=== PATIENT | male | born 1940 | race Caucasian/White ===

== ENCOUNTER 2022-01-06 12:40 | Outpatient (RCR) | payer MEDICARE, SELFPAY ==
[2022-01-06 13:07] VITALS: BP 131/69; PULSE 60
== END 2022-02-11 08:44 | disposition home or self-care (01) ==
LOC: HO.PT 12:40
PROVIDERS: PCP Family Medicine; Visit Provider Family Medicine
DX: M54.32 Sciatica, left side (principal)
CPT/HCPCS: 97112; 97140; 97161

== ENCOUNTER 2022-08-27 08:22 | Emergency (ER) | payer MEDICARE, SELFPAY ==
--- NOTE | ~2022-08-27 | CT_ITS ---
EXAMINATION: CT HEAD WITHOUT CONTRAST CLINICAL INFORMATION: Unsteadiness. COMPARISON: No relevant prior imaging. TECHNIQUE: Contiguous axial imaging was performed from the skull base to vertex without intravenous administration of contrast. This CT examination was performed using dose optimization techniques as appropriate, variously including the following: *Automated exposure control *Adjustment of mA and/or kV according to patient size (this includes techniques or standardized protocols for targeted exams where dose is matched to indication/reason for exam; i.e. extremities or head) *Use of iterative reconstruction technique DLP: 1042 mGy-cm FINDINGS: There is no acute intracranial hemorrhage or abnormal extra-axial collection. No intracranial mass effect midline shift. Lateral and third ventricles are proportionate to the subarachnoid spaces. No hydrocephalus. There are scattered nonspecific foci of hypoattenuation within the periventricular white matter most likely represent a chronic manifestation of small vessel ischemia. Meneses-white matter differentiation is otherwise preserved and there is no evidence of acute territorial infarct. The calvarium and skull base are intact mastoid air cells and middle ear cavities are well aerated. Mild paranasal sinus disease primarily affecting the maxillary sinuses. Globes and orbits are grossly symmetric. CT/CT head/brain wo IV con IMPRESSION: There are scattered chronic small vessel ischemic changes within the periventricular white matter. Otherwise unremarkable examination. No evidence of acute territorial infarct or hemorrhage.
--- NOTE | ~2022-08-27 | XR_ITS ---
EXAMINATION: XR CHEST CLINICAL INFORMATION: Shortness of breath. COMPARISON: None available. TECHNIQUE: Frontal view of the chest was obtained. FINDINGS: Support devices: Left-sided pacemaker device appears in good position without abnormality. No significant abnormality is noted involving the heart, lungs, mediastinum, bony thorax or soft tissues. XR/XR chest 1V IMPRESSION: No acute cardiopulmonary process.
--- NOTE | ~2022-08-27 | CT_ITS ---
EXAMINATION: CT CHEST WITH CONTRAST CLINICAL INFORMATION: Lightheaded, palpitations, shortness of breath. COMPARISON: Chest radiograph dated 08/27/2022. TECHNIQUE: Multidetector volumetric CT imaging of the chest was obtained after the administration of 50 mL of Omnipaque 350 intravenous contrast without immediate adverse reactions. Axial MIP volume rendering provided. Sagittal and coronal reformatted images were obtained. This CT examination was performed using dose optimization techniques as appropriate, variously including the following: *Automated exposure control *Adjustment of mA and/or kV according to patient size (this includes techniques or standardized protocols for targeted exams where dose is matched to indication/reason for exam; i.e. extremities or head) *Use of iterative reconstruction technique DLP: 1042 mGy-cm FINDINGS: LUNGS/PLEURA/AIRWAYS: Mild elevation of the right hemidiaphragm. Mild right lower lobe atelectasis or scarring and bronchiectasis is seen. Mild linear atelectasis or scarring is seen in the right middle lobe, lingula and left lower lobe. No suspicious pulmonary nodules are seen. No focal consolidation or pleural effusions. The airways are patent. MEDIASTINUM: The thyroid gland is unremarkable. Minimal calcifications are seen in the thoracic aorta without significant dilatation. Mild to moderate coronary artery calcifications. No pericardial effusion. No mediastinal or hilar lymphadenopathy. UPPER ABDOMEN: Diffuse decreased hepatic attenuation without focal abnormality. Moderate diverticulosis in the visualized transverse colon without surrounding abnormality. Partial visualization of small exophytic left posterior renal fluid attenuation cysts without other abnormality, not requiring follow-up. MUSCULOSKELETAL: Mild to moderate multilevel degenerative changes without suspicious abnormality. SOFT TISSUES: No soft tissue abnormality. No axillary lymphadenopathy. CT/CT chest w IV con IMPRESSION: 1. Mild elevation of the right hemidiaphragm and mild chronic pulmonary changes as detailed above. No acute or suspicious abnormality. 2. Hepatic steatosis.
[2022-08-27 08:32] VITALS: BP 138/53; PULSE 66; RESP 16; TEMP 36.4; O2SAT 94; BMI 28.3
--- NOTE | 2022-08-27 08:59 | ECG_ITS ---
Test Reason : weakness Blood Pressure : / mmHG Vent. Rate : 060 BPM Atrial Rate : 060 BPM P-R Int : 190 ms QRS Dur : 100 ms QT Int : 420 ms P-R-T Axes : -27 016 080 degrees QTc Int : 420 ms Atrial-paced rhythm Abnormal ECG No previous ECGs available Referred By: Alessandra Leigh Electronically Signed By:BRAXTON GARZA MD
--- NOTE | 2022-08-27 09:18 | ED.WEAKNESS ---
HPI - Weakness General Chief complaint: Weakness Stated complaint: unsteady, cold feet and hands, discomfort in chest Time Seen by Provider: 08/27/22 08:36 Source: patient Mode of arrival: ambulatory History of Present Illness HPI Narrative: This is an 82-year-old male who presents with reporting that he has had increasing shortness of breath over the past week and also reports that he has had uncharacteristic episodes my atrial fibrillation reoccurring?. Patient states that what prompted him to come into the emergency room today is that last night is he was going to bed he felt somewhat dizzy and lightheaded but went to bed any way and then woke up at approximately 03:00 in the morning stating that he felt as though all of his extremities were cold. Patient then attempted to rewarming himself, got up to the bathroom felt very unsteady and lightheaded as well as short of breath, return to bed and then states that he had rigors for probably an hour . He states that he felt very concerned and this has prompted him to come in be evaluated in the ER. Patient states he has also had increased lower extremity swelling as well as dyspnea on exertion. Related Data Previous Rx's Medication Instructions Recorded doxycycline hyclate 100 mg tablet 100 mg PO BID 5 days #10 tabs 08/27/22 furosemide 20 mg tablet (Lasix) 10 mg PO DAILY #14 tabs 08/27/22 Allergies Allergy/AdvReac Type Severity Reaction Status Date / Time Penicillins Allergy Hives Verified 08/27/22 08:32 Review of Systems Review of Systems: Pertinent positives and negatives as stated in HPI PMFSH Past Medical History Source: nursing notes reviewed Social History Social History Alcohol intake: unknown Smoked in Last 30 Days: No Use of substances other than those prescribed or required for medical reasons: No Any prior treatment program specific to substance use: No Advance Directives: Yes Advance Directives Information Provided: Yes Advance Directives on File: No Physical Exam Vital Signs: Vital Signs: Last Vital Signs Temp 97.6 F 08/27/22 08:32 Pulse 60 08/27/22 11:38 Resp 20 08/27/22 11:38 BP 128/68 08/27/22 11:38 Pulse Ox 93 08/27/22 11:38 O2 Del Method Room Air 08/27/22 11:38 BMI result Body Mass Index 28.3 VITAL SIGNS: Reviewed. GENERAL: Well developed, well nourished, in no acute distress. HEAD: Normocephalic/atraumatic EYES: PERRLA, EOMI EARS: Ext canals without abnormality NOSE: Nares patent bilateral OROPHARYNX: no oral lesions noted, posterior pharynx clear NECK: Supple, no adenopathy LUNGS: Normal breath sounds. No adventitious sounds or accessory muscle use. SpO2<94> CARDIOVASCULAR: Regular rate and rhythm without noted murmurs, no JVD but 2+ lower extremity edema. ABDOMEN: Soft, non-tender, non-distended with bowel sounds. MUSCULOSKELETAL: No tenderness, deformities, or effusions noted on gross inspection. EXTREMITIES: No cyanosis, clubbing or edema. SKIN: Inspection of the skin reveals no rashes NEUROLOGIC: Alert and oriented x 4. 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 Medications Administered Discontinued Medications Generic Name Dose Route Start Last Admin Trade Name Freq PRN Reason Stop Dose Admin Furosemide 40 mg 08/27/22 09:49 08/27/22 10:22 Furosemide 40 Mg/4 Ml Vial IVPUSH 08/27/22 09:50 40 mg ONCE ONE Administration Protocol Ceftriaxone Sodium 1 gm/ 50 mls @ 100 mls/hr 08/27/22 11:05 08/27/22 11:53 Sodium Chloride IV 08/27/22 11:34 Infused ONCE ONE Infusion Sodium Chloride 500 mls @ 999 mls/hr 08/27/22 12:00 08/27/22 12:42 Ns IV 08/27/22 12:30 Infused .Q31M GEOVANI Infusion Iohexol 65 ml 08/27/22 10:18 08/27/22 10:19 Iohexol 350 Mg/Ml 100 Ml Infus..Btl IV 08/27/22 10:19 65 ml ONCE ONE Administration Medical Decision Making Medical Decision Making [facility] Narrative: 923: 82-year-old male with new onset rigors and weakness, suspect patient may have developed CHF exacerbation after paroxysmal atrial fibrillation. However, I have concerns regarding the lack of anticoagulation and patient having gone in to these subjective episodes of atrial fibrillation. Current EKG demonstrates paced rhythm but P waves are present. I reviewed all investigations in my interpretation is that patient has a developing pneumonia with overlying CHF. He has responded well to the Lasix and will discharge him on a 10 mg daily dose with strict instructions to follow-up with his primary care provider. He will also be discharged on a course of antibiotics. Patient was ambulated and noted to maintain good oxygenation of 95-98% on room air in reports that he is feeling much better. Differential Diagnosis Please see the discussion above Lab Data Please see the discussion above 08/27/22 09:15 08/27/22 09:15 Labs: Lab Results 08/27/22 08/27/22 08/27/22 Range/Units 09:15 09:15 09:15 WBC 11.2 H (4.8-10.8) X10*3/uL RBC 3.99 L (4.60-5.80) X10*6/uL Hgb 13.0 L (14.0-18.0) g/dl Hct 38.4 L (42.0-52.0) % MCV 96.2 (80.0-98.0) fL MCH 32.6 (27.0-33.0) pg MCHC 33.9 (31.0-36.0) g/dl RDW 13.2 (11.0-16.0) % Plt Count 172 (160-400) X10*3/uL MPV 10.4 (9.4-12.4) fL Immature Gran % (Auto) 0.6 H (0.0-0.4) % Neut % (Auto) 90.7 H (45-73) % Lymph % (Auto) 2.9 L (20-40) % [place] % (Auto) 5.4 (2-11) % Eos % (Auto) 0.1 (0-4) % Baso % (Auto) 0.3 (0-2) % Lymph # (Auto) 0.3 L (1.2-4.9) X10*3/uL [place] # (Auto) 0.6 (0.1-1.2) X10*3/uL Eos # (Auto) 0.0 (0.0-0.4) X10*3/uL Baso # (Auto) 0.0 (0.0-0.2) X10*3/uL Abs Immat Gran (auto) 0.07 H (0.00-0.03) X10*3/uL Absolute Neuts (auto) 10.2 H (2.0-8.3) x10*3/uL Absolute Nucleated RBC 0.000 (0.0-0.012) X10*3/uL Nucleated RBC % (auto) 0.0 (0.0-0.2) /100WBC Smear Tech's Comments VERIFIED PT (10.0-13.1) SEC INR (0.9-1.1) Sodium 142 (135-145) mmol/L Potassium 4.1 (3.3-5.1) mmol/L Chloride 110 H (96-108) mmol/L Carbon Dioxide 22 (22-29) mmol/L Anion Gap 14 (12-20) BUN 23 H (9-16) mg/dL Creatinine 1.11 (0.5-1.4) mg/dL Estim Creat Clear Calc 62.0 Estimated GFR > 60 Random Glucose 145 H (60-115) mg/dL Lactic Acid (0.5-2.0) mmol/L Calcium 8.6 (8.4-10.2) mg/dL Total Bilirubin 1.6 H (0.0-1.0) mg/dL AST 16 (5-37) U/L ALT 13 (0-40) U/L Alkaline Phosphatase 60 (39-117) U/L Troponin I High Sens (<3.5-35.0) ng/L B-Natriuretic Peptide 364 H (<100) pg/mL Total Protein 5.8 L (6.5-8.0) g/dL Albumin 3.8 (3.5-5.0) g/dL Urine Color Urine Appearance Urine pH (5.0-9.0) Ur Specific [place] (1.005-1.025) Urine Protein (Neg-Trace) mg/dL Urine Glucose (UA) (Negative) mg/dL Urine Ketones (Negative) mg/dL Urine Blood (Negative) Urine Nitrite (Negative) Ur Leukocyte Esterase (Negative) Urine RBC (0-2) /HPF Urine WBC (0-5) /HPF Ur Squamous Epith Cells (0-2) /HPF Urine Bacteria (None Seen) Hyaline Casts (0-2) /LPF 08/27/22 08/27/2223 Range/Units 09:15 09:15 10:14 WBC (4.8-10.8) X10*3/uL RBC (4.60-5.80) X10*6/uL Hgb (14.0-18.0) g/dl Hct (42.0-52.0) % MCV (80.0-98.0) fL MCH (27.0-33.0) pg MCHC (31.0-36.0) g/dl RDW (11.0-16.0) % Plt Count (160-400) X10*3/uL MPV (9.4-12.4) fL Immature Gran % (Auto) (0.0-0.4) % Neut % (Auto) (45-73) % Lymph % (Auto) (20-40) % [place] % (Auto) (2-11) % Eos % (Auto) (0-4) % Baso % (Auto) (0-2) % Lymph # (Auto) (1.2-4.9) X10*3/uL [place] # (Auto) (0.1-1.2) X10*3/uL Eos # (Auto) (0.0-0.4) X10*3/uL Baso # (Auto) (0.0-0.2) X10*3/uL Abs Immat Gran (auto) (0.00-0.03) X10*3/uL Absolute Neuts (auto) (2.0-8.3) x10*3/uL Absolute Nucleated RBC (0.0-0.012) X10*3/uL Nucleated RBC % (auto) (0.0-0.2) /100WBC Smear Tech's Comments PT 12.8 (10.0-13.1) SEC INR 1.1 (0.9-1.1) Sodium (135-145) mmol/L Potassium (3.3-5.1) mmol/L Chloride (96-108) mmol/L Carbon Dioxide (22-29) mmol/L Anion Gap (12-20) BUN (9-16) mg/dL Creatinine (0.5-1.4) mg/dL Estim Creat Clear Calc Estimated GFR Random Glucose (60-115) mg/dL Lactic Acid (0.5-2.0) mmol/L Calcium (8.4-10.2) mg/dL Total Bilirubin (0.0-1.0) mg/dL AST (5-37) U/L ALT (0-40) U/L Alkaline Phosphatase (39-117) U/L Troponin I High Sens 22.6 (<3.5-35.0) ng/L B-Natriuretic Peptide (<100) pg/mL Total Protein (6.5-8.0) g/dL Albumin (3.5-5.0) g/dL Urine Color Dark Yellow Urine Appearance Clear Urine pH 5.5 (5.0-9.0) Ur Specific [place] 1.025 (1.005-1.025) Urine Protein 30 (1+) H (Neg-Trace) mg/dL Urine Glucose (UA) Negative (Negative) mg/dL Urine Ketones Trace (Negative) mg/dL Urine Blood Negative (Negative) Urine Nitrite Negative (Negative) Ur Leukocyte Esterase Negative (Negative) Urine RBC 0-2 (0-2) /HPF Urine WBC 0-5 (0-5) /HPF Ur Squamous Epith Cells 0-2 (0-2) /HPF Urine Bacteria None Seen (None Seen) Hyaline Casts 0-2 (0-2) /LPF 08/27/22 Range/Units 11:09 WBC (4.8-10.8) X10*3/uL RBC (4.60-5.80) X10*6/uL Hgb (14.0-18.0) g/dl Hct (42.0-52.0) % MCV (80.0-98.0) fL MCH (27.0-33.0) pg MCHC (31.0-36.0) g/dl RDW (11.0-16.0) % Plt Count (160-400) X10*3/uL MPV (9.4-12.4) fL Immature Gran % (Auto) (0.0-0.4) % Neut % (Auto) (45-73) % Lymph % (Auto) (20-40) % [place] % (Auto) (2-11) % Eos % (Auto) (0-4) % Baso % (Auto) (0-2) % Lymph # (Auto) (1.2-4.9) X10*3/uL [place] # (Auto) (0.1-1.2) X10*3/uL Eos # (Auto) (0.0-0.4) X10*3/uL Baso # (Auto) (0.0-0.2) X10*3/uL Abs Immat Gran (auto) (0.00-0.03) X10*3/uL Absolute Neuts (auto) (2.0-8.3) x10*3/uL Absolute Nucleated RBC (0.0-0.012) X10*3/uL Nucleated RBC % (auto) (0.0-0.2) /100WBC Smear Tech's Comments PT (10.0-13.1) SEC INR (0.9-1.1) Sodium (135-145) mmol/L Potassium (3.3-5.1) mmol/L Chloride (96-108) mmol/L Carbon Dioxide (22-29) mmol/L Anion Gap (12-20) BUN (9-16) mg/dL Creatinine (0.5-1.4) mg/dL Estim Creat Clear Calc Estimated GFR Random Glucose (60-115) mg/dL Lactic Acid 1.9 (0.5-2.0) mmol/L Calcium (8.4-10.2) mg/dL Total Bilirubin (0.0-1.0) mg/dL AST (5-37) U/L ALT (0-40) U/L Alkaline Phosphatase (39-117) U/L Troponin I High Sens (<3.5-35.0) ng/L B-Natriuretic Peptide (<100) pg/mL Total Protein (6.5-8.0) g/dL Albumin (3.5-5.0) g/dL Urine Color Urine Appearance Urine pH (5.0-9.0) Ur Specific [place] (1.005-1.025) Urine Protein (Neg-Trace) mg/dL Urine Glucose (UA) (Negative) mg/dL Urine Ketones (Negative) mg/dL Urine Blood (Negative) Urine Nitrite (Negative) Ur Leukocyte Esterase (Negative) Urine RBC (0-2) /HPF Urine WBC (0-5) /HPF Ur Squamous Epith Cells (0-2) /HPF Urine Bacteria (None Seen) Hyaline Casts (0-2) /LPF Independent Interpretation I performed an independent interpretation of an: EKG Interpretation: 09: Atrial paced rhythm, HR-60, no STEMI, paced [place]/QRS/QTC are within normal limits. Radiology Impression Radiologist Impression: My interpretation is not entirely in agreement with radiology's impression of the imaging studies. Reviewing the imaging studies in the context of patient's history and clinical presentation as well as objective laboratory data I feel that this patient has a component of both CHF as well as developing pneumonia. Chronic Conditions Patient?s care impacted by: Hypertension Discharge Plan Discharge Clinical Impression: CHF (congestive heart failure), Pneumonia Patient Disposition: Home, Self-Care Instructions: Heart Failure (ED), Community Acquired Pneumonia (ED), Low-Sodium Diet (ED) Additional Instructions: 1. Resume all home medications as prescribed. 2. Complete the entire course of antibiotics as ordered. 3. I have started you on a low dose of Lasix, this is a medication that will make you urinate more frequently. Please be sure to mention this to your primary care provider/burlap roll coverer. 4. Please follow-up with your burlap roll coverer on Tuesday morning as well as your primary care provider. Return to the ER for any worsening symptoms. Prescriptions: New furosemide [Lasix] 20 mg tablet 10 mg PO DAILY Qty: 14 0RF doxycycline hyclate 100 mg tablet 100 mg PO BID 5 Days Qty: 10 0RF Referrals: Philippe Ly MD [Primary Care Provider] -
--- NOTE | 2022-08-27 09:19 | PC.NURSE ---
ED radiology at bedside patient AOx 4 neuros intact no facial droop no deviation of tongue no slurring of words or trouble word finding. Grasp equal 5/5 no drift noted patient ambulates with steady independent gait. Patient denies SOB or rspiratory distress LS clear reports episode of palpations and chest pressure has history of a fib and has pacer. Patient reports was during activity. Pacer is demand pacer HR 60. IV access obtained labs collected and sent will CTM
[2022-08-27 09:23] LABS: Basophils Percent Auto 0.3 % (0-2); Eosinophils Percent Auto 0.1 % (0-4); Hematocrit 38.4 % (42.0-52.0); Imm Gran Abs Auto 0.07 X10*3/uL (0.00-0.03); Imm Gran Pct Auto 0.6 % (0.0-0.4); Lymphocytes Absolute Auto 0.3 X10*3/uL (1.2-4.9); Lymphocytes Percent Auto 2.9 % (20-40); MANUAL DIFF FLAG SCAN; Mean Corpuscular HGB Conc 33.9 g/dl (31.0-36.0); Mean Corpuscular Hemoglobin 32.6 pg (27.0-33.0); Mean Corpuscular Volume 96.2 fL (80.0-98.0); Mean Platelet Volume 10.4 fL (9.4-12.4); Monocytes Absolute Auto 0.6 X10*3/uL (0.1-1.2); Monocytes Percent Auto 5.4 % (2-11); Neutrophils Absolute Auto 10.2 x10*3/uL (2.0-8.3); Neutrophils Percent Auto 90.7 % (45-73); Platelet Count 172 X10*3/uL (160-400); Red Blood Count 3.99 X10*6/uL (4.60-5.80); Red Cell Distribution Width 13.2 % (11.0-16.0); SCAN SMEAR FLAG 1; White Blood Count 11.2 X10*3/uL (4.8-10.8)
[2022-08-27 09:28] LABS: INTERNATIONAL NORM RATIO 1.1 (0.9-1.1); Prothrombin Time 12.8 SEC (10.0-13.1)
[2022-08-27 09:40] LABS: Alanine Aminotransferase 13 U/L (0-40); Albumin Level 3.8 g/dL (3.5-5.0); Alkaline Phosphatase 60 U/L (39-117); Anion Gap 14 (12-20); Aspartate Amino Transferase 16 U/L (5-37); Bilirubin Total 1.6 mg/dL (0.0-1.0); Blood Urea Nitrogen 23 mg/dL (9-16); Calcium 8.6 mg/dL (8.4-10.2); Carbon Dioxide 22 mmol/L (22-29); Chloride 110 mmol/L (96-108); Estimated Glomerular Filt Rate > 60; Glucose Random 145 mg/dL (60-115); Potassium 4.1 mmol/L (3.3-5.1); Sodium 142 mmol/L (135-145); Total Protein 5.8 g/dL (6.5-8.0)
[2022-08-27 09:44] LABS: Troponin-I High Sensitivity 22.6 ng/L (<3.5-35.0)
[2022-08-27 09:46] LABS: B Type Natriuretic Peptide 364 pg/mL (<100)
--- NOTE | 2022-08-27 09:56 | PC.NURSE ---
Patient to CT
[2022-08-27 10:12] LABS: SLIDE REVIEW VERIFIED
[2022-08-27 10:14] VITALS: BP 129/50; PULSE 67; RESP 22; O2SAT 92
[2022-08-27] MEDS: iohexoL 350 MG/ML 100 ML INFUS..BTL 65 ML IV (10:19)
--- NOTE | 2022-08-27 10:21 | PC.NURSE ---
pATIENT REFUSED [facility] CATHETER IS CONTINENT OF URINE md AWARE.
[2022-08-27 10:22] LABS: Appearance Urine Clear; Color Urine Dark Yellow; Glucose Urine UA Negative (Negative); Leukocyte Esterase Urine Negative (Negative); Nitrite Urine Negative (Negative); PH 5.5 (5.0-9.0); Specific Gravity - Urine 1.025 (1.005-1.025); UMIC TRIGGER UACC YES; Urine Blood Negative (Negative); Urine Ketones Trace mg/dL (Negative); Urine Protein 30 (1+) mg/dL (Neg-Trace)
[2022-08-27] MEDS: Furosemide 40 MG/4 ML VIAL IVPUSH (10:22)
[2022-08-27 10:26] LABS: Bacteria Urine None Seen (None Seen); Hyaline Casts Urine 0-2 /LPF (0-2); RBC Urine 0-2 /HPF (0-2); Squamous Epithelial Cell Urine 0-2 /HPF (0-2); WBC Urine 0-5 /HPF (0-5)
[2022-08-27 11:27] LABS: Lactic Acid 1.9 mmol/L (0.5-2.0)
[2022-08-27] MEDS: cefTRIAXone sodium 1 GM in 0.9 % Sodium Chloride 50 ML IV (11:36)
[2022-08-27 11:38] VITALS: BP 128/68; PULSE 60; RESP 20; O2SAT 93
[2022-08-27] MEDS: 0.9 % Sodium Chloride 500 ML 999 ML IV (11:58)
--- NOTE | 2022-08-27 13:05 | PC.NURSE ---
Ambulated with patient who reports feeling better O2 sat remained 95-97% MD aware
[2022-08-27 13:42] VITALS: BP 102/60; PULSE 60; RESP 18; TEMP 37.2; O2SAT 95
== END 2022-08-27 13:55 | disposition home or self-care (01) ==
PROVIDERS: Emergency Provider Student in an Organized Health Care Education/Training Program; PCP Family Medicine
DX: J18.9 Pneumonia, unspecified organism (principal); I50.9 Heart failure, unspecified; R51.9 Headache, unspecified; M54.6 Pain in thoracic spine; R06.02 Shortness of breath; R07.89 Other chest pain; Z79.899 Other long term (current) drug therapy
CPT/HCPCS: 36415; 70450; 71045; 71260; 80053; 81001; 83605; 83880; 84484; 85025; 85610; 87040; 87147; 87186; 87205; 93005; 96361; 96365; 96375; 99285; J0696; J1940; Q9967

== ENCOUNTER 2022-09-01 13:34 | Inpatient (IN) | payer MEDICARE, SELFPAY ==
--- NOTE | ~2022-09-01 | XR_ITS ---
EXAMINATION: XR CHEST CLINICAL INFORMATION: Baseline chest x-ray COMPARISON: Chest x-ray 08/27/2022. CT of chest 08/27/2022 TECHNIQUE: Frontal view of the chest was obtained. Portable 1815 hours FINDINGS: Asymmetric elevation of right diaphragm above the left. Pacemaker lead in right atrium and right ventricle unchanged position since prior chest x-ray. No acute abnormality. No pulmonary vascular congestion. No focal airspace opacity. No pleural effusion or pneumothorax. Multilevel degenerative spondylosis of the dorsal spine. XR/XR chest 1V IMPRESSION: No acute abnormality of chest.
--- NOTE | 2022-09-01 13:42 | ED_ITS ---
HPI - General Adult General Chief complaint: Recheck/Abnormal Lab/Rx <BHAVNA Menard - Last Filed: 09/01/22 13:45> Stated complaint: Abnormal labs <BHAVNA Menard - Last Filed: 09/01/22 13:45> Time Seen by Provider: 09/01/22 16:19 <BHAVNA Menard - Last Filed: 09/01/22 13:45> Source: patient and RN notes reviewed <Valentino Coreas - Last Filed: 11/06/22 16:04> Mode of arrival: ambulatory <Valentino Coreas - Last Filed: 11/06/22 16:04> Limitations: no limitations <Valentino Coreas - Last Filed: 11/06/22 16:04> History of Present Illness HPI narrative: 82-year-old male with past medical history significant for atrial fibrillation, sick sinus syndrome status post pacemaker implantation presents for evaluation of positive blood cultures. Patient is not anticoagulated for his AFib. Reports for the last 2 weeks his AFib that had been under control for years ?has been constantly going faster and out of control. ? He was seen here on 08/27/2022 for shortness of breath and fatigue. He was discharged with diagnosis of community-acquired pneumonia and CHF with doxycycline and Lasix respectively. The patient reports that he has continued to have chills and sweats at night. He reports that he does not feel back to his baseline. Of note, the patient was called and told to return to the ER due to ?positive blood cultures. His blood cultures from 08/27/2022 tested positive for group C strep. The patient does state that he has had a previous heart murmur <Valentino Coreas - Last Filed: 11/06/22 16:04> Related Data Home medications: Home Medications Medication Instructions Recorded Confirmed amiodarone 200 mg tablet 200 mg PO DAILY 09/01/22 09/01/22 ascorbic acid (vitamin C) 500 mg 1,000 mg PO DAILY 09/01/22 09/01/22 tablet atorvastatin 10 mg tablet 10 mg PO DAILY 09/01/22 09/01/22 cholecalciferol (vitamin D3) 10 10 mcg PO DAILY 09/01/22 09/01/22 mcg (400 unit) tablet escitalopram oxalate 10 mg tablet 10 mg PO DAILY 09/01/22 09/01/22 multivitamin 1 tab PO DAILY 09/01/22 09/01/22 vitamin E 268 mg (400 unit) capsule 268 mg PO DAILY 09/01/22 09/01/22 Previous Rx's Medication Instructions Recorded furosemide 20 mg tablet (Lasix) 10 mg PO DAILY #14 tabs 08/27/22 cefuroxime axetil 500 mg tablet 500 mg PO BID 10 days #20 tabs 09/03/22 <BHAVNA Menard - Last Filed: 09/01/22 13:45> Allergies/adverse reactions: Allergies Allergy/AdvReac Type Severity Reaction Status Date / Time Penicillins Allergy Hives Verified 09/01/22 14:05 <BHAVNA Menard - Last Filed: 09/01/22 13:45> Review of Systems Constitutional: Constitutional: Reports as per HPI, Reports chills, Reports fatigue, Denies fever(s), Denies headache(s) and Reports weakness <Valentino Coreas - Last Filed: 11/06/22 16:04> ENT: Denies headache(s) <Valentino Coreas - Last Filed: 11/06/22 16:04> Cardiovascular: Cardiovascular: Denies chest pain <Valentino Coreas - Last Filed: 11/06/22 16:04> Respiratory: Respiratory: Denies cough <Valentino Coreas - Last Filed: 11/06/22 16:04> Gastrointestinal: Gastrointestinal: Denies abdominal pain, Denies constipation and Denies vomiting <Valentino Coreas - Last Filed: 11/06/22 16:04> Genitourinary: Genitourinary: Denies difficulty urinating and Denies dysuria <Valentino Coreas - Last Filed: 11/06/22 16:04> Integumentary/Breasts: Skin/Breast: Denies rash <Valentino Coreas - Last Filed: 11/06/22 16:04> Neurologic: Denies headache(s), Denies focal weakness and Reports weakness <Valentino Coreas - Last Filed: 11/06/22 16:04> Endocrine: Endocrine: Reports fatigue <Valentino Coreas - Last Filed: 16:04> PMFSH Past Medical History Medical History: Medical History (Updated 09/04/22 @ 00:02 by Catie Charles) Atrial fibrillation Depression Group C streptococcal infection Hyperlipidemia Sick sinus syndrome <BHAVNA Menard - Last Filed: 09/01/22 13:45> Surgical History: Surgical History No pertinent past surgical history <BHAVNA Menard - Last Filed: 09/01/22 13:45> Family History Family History: Family History Mother Lung cancer Father Emphysema lung <BHAVNA Menard - Last Filed: 09/01/22 13:45> Social History Social History: Social History Household Members: None Housing: House Do you presently have visiting nurse or other home services: No Alcohol intake: current Alcohol intake frequency: 0-2 drinks per day Patient Tobacco Use Status: Former Tobacco user Tobacco use type: Cigarette Second Hand Smoke Exposure: No service: No Current occupational status: retired <BHAVNA Menard - Last Filed: 09/01/22 13:45> Physical Exam ED Vital Signs: Vital Signs - 24 hr 09/01/22 14:06 09/01/22 17:46 Temperature 98 F 97.5 F Pulse Rate 59 72 Respiratory Rate 19 18 Blood Pressure 179/47 H 151/92 H Pulse Oximetry 98 95 Oxygen Delivery Method Room Air Room Air BMI result Body Mass Index 29.0 <BHAVNA Menard - Last Filed: 09/01/22 13:45> Vital Signs - 24 hr 09/01/22 14:06 09/01/22 17:46 Temperature 98 F 97.5 F Pulse Rate 59 72 Respiratory Rate 19 18 Blood Pressure 179/47 H 151/92 H Pulse Oximetry 98 95 Oxygen Delivery Method Room Air Room Air BMI result Body Mass Index 29.0 <Valentino Coreas - Last Filed: 11/06/22 16:04> Const General: healthy appearing, comfortable, no acute distress, alert and awake <Valentino Coreas - Last Filed: 11/06/22 16:04> Nutritional Appearance: well nourished <Valentino OSan Bernardino - Last Filed: 11/06/22 16:04> Orientation/consciousness: patient oriented x3 <Valentino OLuis Antonio - Last Filed: 11/06/22 16:04> HENMT Head: Yes normocephalic and Yes atraumatic <Valentino O - Last Filed: 11/06/22 16:04> Throat: Yes posterior oropharynx normal <Valentino O - Last Filed: 11/06/22 16:04> Eyes Eyelids: Yes eyelids normal <Valentino O - Last Filed: 11/06/22 16:04> Conjunctivae: conjunctivae normal <Valentino O Last Filed: 11/06/22 16:04> Sclerae: sclerae normal <Valentino Last Filed: 11/06/22 16:04> Corneas: corneas normal <Valentino O - Last Filed: 11/06/22 16:04> Pupils: Equal, round and reactive pupils present <Valentino O - Last Filed: 11/06/22 16:04> EOM: EOMs intact bilaterally <Valentino O - Last Filed: 11/06/22 16:04> Neck Neck: Yes full ROM <Valentino O Last Filed: 11/06/22 16:04> Resp Effort & Inspection: normal respiratory effort, able to speak in complete sentences, no audible wheezes and not labored <Valentino OSan Bernardino - Last Filed: 11/06/22 16:04> Auscultation: clear to auscultation bilaterally <Valentino O Last Filed: 11/06/22 16:04> Cardio Rate: regular rate <Valentino O - Last Filed: 11/06/22 16:04> Rhythm: regular rhythm <Valentino O - Last Filed: 11/06/22 16:04> Heart sounds: Murmur heart sound present <Valentino O - Last Filed: 11/06/22 16:04> GI Inspection: No distended <Valentino O - Last Filed: 11/06/22 16:04> Palpation (GI): Soft to palpation, not firm, nontender, no guarding and not rigid <Valentino RodriguezVinodLuis Antonio - Last Filed: 11/06/22 16:04> Auscultation: normoactive bowel sounds <Valentino RodriguezVinodLuis Antonio - Last Filed: 11/06/22 16:04> Skin General skin exam: no rashes or lesions noted and elasticity normal <Valentino Coreas - Last Filed: 11/06/22 16:04> Neuro General: patient oriented x3 <Valentino Coreas - Last Filed: 11/06/22 16:04> Cranial nerves: Yes Equal, round and reactive pupils present and Yes Bilaterally intact EOM present <Valentino Coreas - Last Filed: 11/06/22 16:04> Cognition (Neuro): normal cognition <Valentino Coreas - Last Filed: 11/06/22 16:04> Extrem Other: Moving all extremities well without any obvious deformities <Valentino Coreas - Last Filed: 11/06/22 16:04> Course Course Course Narrative: RME - 82 yo male recently seen here on 08/27 for chills and SOB. He was found to have PNA and CHF - he was discharged on lasix and doxycyline. His blood cultures from 08/27 grew Group C Strep x2. He continues to feel weak and fatigued. He reports chills when he is ready for his next dose of doxycyline. Plan: repeat labs and cultures, likely admission for Strep bacteremia and endocarditis rule out <BHAVNA Menard - Last Filed: 09/01/22 13:45> Reevaluation(s) Reevaluation #1: Discussed with the hospitalist, Dr Mcgregor who recommends stopping vancomycin which has not been administered and giving clindamycin instead for the group C strep. Patient will be admitted to her service. <Valentino Coresa - Last Filed: 11/06/22 16:04> Time: 17:10 <Valentino Coreas - Last Filed: 11/06/22 16:04> Medications Administered Discontinued Medications Generic Name Dose Route Start Last Admin Trade Name Freq PRN Reason Stop Dose Admin Amiodarone HCl 200 mg 09/02/22 09:00 09/03/22 09:41 Amiodarone Hcl 200 Mg Tablet PO 200 mg DAILY GEOVANI Administration Atorvastatin Calcium 10 mg 09/02/22 09:00 09/03/22 09:40 Atorvastatin Calcium 10 Mg Tablet PO 10 mg DAILY GEOVANI Administration Enoxaparin Sodium 40 mg 09/01/22 20:00 09/02/22 20:02 Enoxaparin Sodium 40 Mg/0.4 Ml Syringe SUBCUT 40 mg Q24H GEOVANI Administration Escitalopram Oxalate 10 mg 09/02/22 09:00 09/03/22 09:41 Escitalopram Oxalate 10 Mg Tablet PO 10 mg DAILY GEOVANI Administration Furosemide 10 mg 09/02/22 09:00 09/03/22 09:41 Furosemide 20 Mg Tablet PO 10 mg DAILY GEOVANI Administration Protocol Clindamycin Phosphate 600 mg in 50 mls @ 100 mls/hr 09/01/22 17:09 09/01/22 18:15 Cleocin IV 09/01/22 17:38 Infused ONCE ONE Infusion Clindamycin Phosphate 300 mg in 50 mls @ 100 mls/hr 09/02/22 00:00 09/02/22 13:05 Cleocin IV Infused Q6H GEOVANI Infusion Ceftriaxone Sodium 1 gm/ 50 mls @ 100 mls/hr 09/02/22 15:00 09/03/22 17:32 Sodium Chloride IV Infused Q24H GEOVANI Infusion Multivitamins/Vitamin C 1 tab 09/02/22 09:00 09/03/22 09:40 Multivitamin Tablet PO 1 tab DAILY [facility] Administration Sodium Chloride 3 ml 09/02/22 00:00 09/03/22 16:46 0.9 % Sodium Chloride Flush 3 Ml Syringe IVFLUSH 3 ml QSHIFT [facility] Administration <BHAVNA Menard - Last Filed: 09/01/22 13:45> Medications Administered Discontinued Medications Generic Name Dose Route Start Last Admin Trade Name Freq PRN Reason Stop Dose Admin Amiodarone HCl 200 mg 09/02/22 09:00 09/03/22 09:41 Amiodarone Hcl 200 Mg Tablet PO 200 mg DAILY GEOVANI Administration Atorvastatin Calcium 10 mg 09/02/22 09:00 09/03/22 09:40 Atorvastatin Calcium 10 Mg Tablet PO 10 mg DAILY GEOVANI Administration Enoxaparin Sodium 40 mg 09/01/22 20:00 09/02/22 20:02 Enoxaparin Sodium 40 Mg/0.4 Ml Syringe SUBCUT 40 mg Q24H GEOVANI Administration Escitalopram Oxalate 10 mg 09/02/22 09:00 09/03/22 09:41 Escitalopram Oxalate 10 Mg Tablet PO 10 mg DAILY GEOVANI Administration Furosemide 10 mg 09/02/22 09:00 09/03/22 09:41 Furosemide 20 Mg Tablet PO 10 mg DAILY GEOVANI Administration Protocol Clindamycin Phosphate 600 mg in 50 mls @ 100 mls/hr 09/01/22 17:09 09/01/22 18:15 Cleocin IV 09/01/22 17:38 Infused ONCE ONE Infusion Clindamycin Phosphate 300 mg in 50 mls @ 100 mls/hr 09/02/22 00:00 09/02/22 13:05 Cleocin IV Infused Q6H GEOVANI Infusion Ceftriaxone Sodium 1 gm/ 50 mls @ 100 mls/hr 09/02/22 15:00 09/03/22 17:32 Sodium Chloride IV Infused Q24H [facility]ANI Infusion Multivitamins/Vitamin C 1 tab 09/02/22 09:00 09/03/22 09:40 Multivitamin Tablet PO 1 tab DAILY GEOVANI Administration Sodium Chloride 3 ml 09/02/22 00:00 09/03/22 16:46 0.9 % Sodium Chloride Flush 3 Ml Syringe IVFLUSH 3 ml QSHIFT [facility]ANI Administration <Valentino Coreas - Last Filed: 11/06/22 16:04> Medical Decision Making Medical Decision Making [facility] Narrative: 82-year-old male presents for evaluation of positive blood cultures. He continues to endorse chills and describes rigors at night. He has a heart mu rmur on exam. He does report a previous murmur, unclear if this is an acute changes it and carditis. The patient likely require admission. Patient has Streptococcus group C is sensitive to vancomycin, so this will be initiated. We discussed the hospitalist for admission. Patient has no rashes to suggest cellulitis, the only recent infection he has had is is pneumonia. He has not had any recent procedures. <Valentino Coreas - Last Filed: 11/06/22 16:04> Differential Diagnosis Bacteremia Endocarditis Pneumonia CHF Rapid AFib <Valentino Coreas - Last Filed: 11/06/22 16:04> Lab Data [facility] Lab Attestation statement: I reviewed the patient's lab results. <Valentino Coreas - Last Filed: 0 11/06/22 16:04> No significant lab abnormalities with the exception of positive blood cultures reviewed from 08/28/2019 <Valentino Coreas - Last Filed: 11/06/22 16:04> Result Diagrams: 09/01/22 14:01 09/01/22 14:01 <BHAVNA Menard - Last Filed: 09/01/22 13:45> Labs: Lab Results 09/01/22 09/01/22 09/01/22 Range/Units 14:01 14:01 14:01 WBC 6.1 (4.8-10.8) X10*3/uL RBC 4.23 L (4.60-5.80) X10*6/uL Hgb 13.6 L (14.0-18.0) g/dl Hct 41.5 L (42.0-52.0) % MCV 98.1 H (80.0-98.0) fL MCH 32.2 (27.0-33.0) pg MCHC 32.8 (31.0-36.0) g/dl RDW 13.1 (11.0-16.0) % Plt Count 162 (160-400) X10*3/uL MPV 10.6 (9.4-12.4) fL Immature Gran % (Auto) 0.5 H (0.0-0.4) % Neut % (Auto) 67.4 (45-73) % Lymph % (Auto) 20.8 (20-40) % [place] % (Auto) 9.2 (2-11) % Eos % (Auto) 1.8 (0-4) % Baso % (Auto) 0.3 (0-2) % Lymph # (Auto) 1.3 (1.2-4.9) X10*3/uL [place] # (Auto) 0.6 (0.1-1.2) X10*3/uL Eos # (Auto) 0.1 (0.0-0.4) X10*3/uL Baso # (Auto) 0.0 (0.0-0.2) X10*3/uL Abs Immat Gran (auto) 0.03 (0.00-0.03) X10*3/uL Absolute Neuts (auto) 4.1 (2.0-8.3) x10*3/uL Absolute Nucleated RBC 0.000 (0.0-0.012) X10*3/uL Nucleated RBC % (auto) 0.0 (0.0-0.2) /100WBC PT (10.0-13.1) SEC INR (0.9-1.1) APTT (26.0-36.4) SEC Sodium 141 (135-145) mmol/L Potassium 4.4 (3.3-5.1) mmol/L Chloride 106 (96-108) mmol/L Carbon Dioxide 25 (22-29) mmol/L Anion Gap 14 (12-20) BUN 18 H (9-16) mg/dL Creatinine 1.12 (0.5-1.4) mg/dL Estim Creat Clear Calc 60.3 Estimated GFR > 60 Random Glucose 117 H (60-115) mg/dL Lactic Acid 1.7 (0.5-2.0) mmol/L Calcium 8.8 (8.4-10.2) mg/dL Magnesium 2.1 (1.6-2.6) mg/dL Total Bilirubin 0.9 (0.0-1.0) mg/dL Direct Bilirubin 0.2 (0.0-0.5) mg/dL AST 18 (5-37) U/L ALT 21 (0-40) U/L Alkaline Phosphatase 75 (39-117) U/L Total Protein 6.4 L (6.5-8.0) g/dL Albumin 3.9 (3.5-5.0) g/dL COVID-19 ([facility]ERO) (Negative) COVID-19 Clin Com 09/01/22 09/01/22 Range/Units 14:01 17:42 WBC (4.8-10.8) X10*3/uL RBC (4.60-5.80) X10*6/uL Hgb (14.0-18.0) g/dl Hct (42.0-52.0) % MCV (80.0-98.0) fL MCH (27.0-33.0) pg MCHC (31.0-36.0) g/dl RDW (11.0-16.0) % Plt Count (160-400) X10*3/uL MPV (9.4-12.4) fL Immature Gran % (Auto) (0.0-0.4) % Neut % (Auto) (45-73) % Lymph % (Auto) (20-40) % [place] % (Auto) (2-11) % Eos % (Auto) (0-4) % Baso % (Auto) (0-2) % Lymph # (Auto) (1.2-4.9) X10*3/uL [place] # (Auto) (0.1-1.2) X10*3/uL Eos # (Auto) (0.0-0.4) X10*3/uL Baso # (Auto) (0.0-0.2) X10*3/uL Abs Immat Gran (auto) (0.00-0.03) X10*3/uL Absolute Neuts (auto) (2.0-8.3) x10*3/uL Absolute Nucleated RBC (0.0-0.012) X10*3/uL Nucleated RBC % (auto) (0.0-0.2) /100WBC PT 12.3 (10.0-13.1) SEC INR 1.1 (0.9-1.1) APTT 29.1 (26.0-36.4) SEC Sodium (135-145) mmol/L Potassium (3.3-5.1) mmol/L Chloride (96-108) mmol/L Carbon Dioxide (22-29) mmol/L Anion Gap (12-20) BUN (9-16) mg/dL Creatinine (0.5-1.4) mg/dL Estim Creat Clear Calc Estimated GFR Random Glucose (60-115) mg/dL Lactic Acid (0.5-2.0) mmol/L Calcium (8.4-10.2) mg/dL Magnesium (1.6-2.6) mg/dL Total Bilirubin (0.0-1.0) mg/dL Direct Bilirubin (0.0-0.5) mg/dL AST (5-37) U/L ALT (0-40) U/L Alkaline Phosphatase (39-117) U/L Total Protein (6.5-8.0) g/dL Albumin (3.5-5.0) g/dL COVID-19 ([facility]) Negative (Negative) COVID-19 Clin Com See Note <BHAVNA Menard - Last Filed: 09/01/22 13:45> Lab Results 09/01/22 09/01/22 09/01/22 Range/Units 14:01 14:01 14:01 WBC 6.1 (4.8-10.8) X10*3/uL RBC 4.23 L (4.60-5.80) X10*6/uL Hgb 13.6 L (14.0-18.0) g/dl Hct 41.5 L (42.0-52.0) % MCV 98.1 H (80.0-98.0) fL MCH 32.2 (27.0-33.0) pg MCHC 32.8 (31.0-36.0) g/dl RDW 13.1 (11.0-16.0) % Plt Count 162 (160-400) X10*3/uL MPV 10.6 (9.4-12.4) fL Immature Gran % (Auto) 0.5 H (0.0-0.4) % Neut % (Auto) 67.4 (45-73) % Lymph % (Auto) 20.8 (20-40) % [place] % (Auto) 9.2 (2-11) % Eos % (Auto) 1.8 (0-4) % Baso % (Auto) 0.3 (0-2) % Lymph # (Auto) 1.3 (1.2-4.9) X10*3/uL [place] # (Auto) 0.6 (0.1-1.2) X10*3/uL Eos # (Auto) 0.1 (0.0-0.4) X10*3/uL Baso # (Auto) 0.0 (0.0-0.2) X10*3/uL Abs Immat Gran (auto) 0.03 (0.00-0.03) X10*3/uL Absolute Neuts (auto) 4.1 (2.0-8.3) x10*3/uL Absolute Nucleated RBC 0.000 (0.0-0.012) X10*3/uL Nucleated RBC % (auto) 0.0 (0.0-0.2) /100WBC PT (10.0-13.1) SEC INR (0.9-1.1) APTT (26.0-36.4) SEC Sodium 141 (135-145) mmol/L Potassium 4.4 (3.3-5.1) mmol/L Chloride 106 (96-108) mmol/L Carbon Dioxide 25 (22-29) mmol/L Anion Gap 14 (12-20) BUN 18 H (9-16) mg/dL Creatinine 1.12 (0.5-1.4) mg/dL Estim Creat Clear Calc 60.3 Estimated GFR > 60 Random Glucose 117 H (60-115) mg/dL Lactic Acid 1.7 (0.5-2.0) mmol/L Calcium 8.8 (8.4-10.2) mg/dL Magnesium 2.1 (1.6-2.6) mg/dL Total Bilirubin 0.9 (0.0-1.0) mg/dL Direct Bilirubin 0.2 (0.0-0.5) mg/dL AST 18 (5-37) U/L ALT 21 (0-40) U/L Alkaline Phosphatase 75 (39-117) U/L Total Protein 6.4 L (6.5-8.0) g/dL Albumin 3.9 (3.5-5.0) g/dL COVID-19 ([facility]) (Negative) COVID-19 Clin Com 09/01/22 09/01/22 Range/Units 14:01 17:42 WBC (4.8-10.8) X10*3/uL RBC (4.60-5.80) X10*6/uL Hgb (14.0-18.0) g/dl Hct (42.0-52.0) % MCV (80.0-98.0) fL MCH (27.0-33.0) pg MCHC (31.0-36.0) g/dl RDW (11.0-16.0) % Plt Count (160-400) X10*3/uL MPV (9.4-12.4) fL Immature Gran % (Auto) (0.0-0.4) % Neut % (Auto) (45-73) % Lymph % (Auto) (20-40) % [place] % (Auto) (2-11) % Eos % (Auto) (0-4) % Baso % (Auto) (0-2) % Lymph # (Auto) (1.2-4.9) X10*3/uL [place] # (Auto) (0.1-1.2) X10*3/uL Eos # (Auto) (0.0-0.4) X10*3/uL Baso # (Auto) (0.0-0.2) X10*3/uL Abs Immat Gran (auto) (0.00-0.03) X10*3/uL Absolute Neuts (auto) (2.0-8.3) x10*3/uL Absolute Nucleated RBC (0.0-0.012) X10*3/uL Nucleated RBC % (auto) (0.0-0.2) /100WBC PT 12.3 (10.0-13.1) SEC INR 1.1 (0.9-1.1) APTT 29.1 (26.0-36.4) SEC Sodium (135-145) mmol/L Potassium (3.3-5.1) mmol/L Chloride (96-108) mmol/L Carbon Dioxide (22-29) mmol/L Anion Gap (12-20) BUN (9-16) mg/dL Creatinine (0.5-1.4) mg/dL Estim Creat Clear Calc Estimated GFR Random Glucose (60-115) mg/dL Lactic Acid (0.5-2.0) mmol/L Calcium (8.4-10.2) mg/dL Magnesium (1.6-2.6) mg/dL Total Bilirubin (0.0-1.0) mg/dL Direct Bilirubin (0.0-0.5) mg/dL AST (5-37) U/L ALT (0-40) U/L Alkaline Phosphatase (39-117) U/L Total Protein (6.5-8.0) g/dL Albumin (3.5-5.0) g/dL COVID-19 ([facility]) Negative (Negative) COVID-19 Clin Com See Note <Valentino Coreas - Last Filed: 11/06/22 16:04> Discharge Plan Discharge Clinical Impression: Bacteremia <BHAVNA Menard - Last Filed: 09/01/22 13:45> Patient Disposition: Admitted As Inpatient <BHAVNA Menard - Last Filed: 09/01/22 13:45> Interventions: Admission Worksheet (ED) Last Done: 09/01/22 20:14 <BHAVNA Menard - Last Filed: 09/01/22 13:45> Discharge Date/Time: 09/01/22 20:15 <BHAVNA Menard - Last Filed: 09/01/22 13:45>
--- NOTE | 2022-09-01 13:42 | ECG_ITS ---
Test Reason : weakness Blood Pressure : / mmHG Vent. Rate : 079 BPM Atrial Rate : 062 BPM P-R Int : 254 ms QRS Dur : 102 ms QT Int : 414 ms P-R-T Axes : -18 006 057 degrees QTc Int : 474 ms Atrial-paced rhythm with prolonged AV conduction with frequent Premature ventricular complexes Abnormal ECG When compared with ECG of 27-AUG-2022 09:05, Premature ventricular complexes are now Present Referred By: Melany Cortez Electronically Signed By:LUIS FUNES
[2022-09-01 14:06] VITALS: BP 179/47; PULSE 59; RESP 19; TEMP 36.6; O2SAT 98; BMI 29.0
[2022-09-01 14:08] LABS: MANUAL DIFF FLAG NO
[2022-09-01 14:12] LABS: Basophils Percent Auto 0.3 % (0-2); Eosinophils Absolute Auto 0.1 X10*3/uL (0.0-0.4); Eosinophils Percent Auto 1.8 % (0-4); Hematocrit 41.5 % (42.0-52.0); Hemoglobin 13.6 g/dl (14.0-18.0); Imm Gran Abs Auto 0.03 X10*3/uL (0.00-0.03); Imm Gran Pct Auto 0.5 % (0.0-0.4); Lymphocytes Absolute Auto 1.3 X10*3/uL (1.2-4.9); Lymphocytes Percent Auto 20.8 % (20-40); Mean Corpuscular HGB Conc 32.8 g/dl (31.0-36.0); Mean Corpuscular Hemoglobin 32.2 pg (27.0-33.0); Mean Corpuscular Volume 98.1 fL (80.0-98.0); Mean Platelet Volume 10.6 fL (9.4-12.4); Monocytes Absolute Auto 0.6 X10*3/uL (0.1-1.2); Monocytes Percent Auto 9.2 % (2-11); Neutrophils Absolute Auto 4.1 x10*3/uL (2.0-8.3); Neutrophils Percent Auto 67.4 % (45-73); Platelet Count 162 X10*3/uL (160-400); Red Blood Count 4.23 X10*6/uL (4.60-5.80); Red Cell Distribution Width 13.1 % (11.0-16.0); White Blood Count 6.1 X10*3/uL (4.8-10.8)
[2022-09-01 14:21] LABS: Lactic Acid 1.7 mmol/L (0.5-2.0)
[2022-09-01 14:25] LABS: Alanine Aminotransferase 21 U/L (0-40); Albumin Level 3.9 g/dL (3.5-5.0); Alkaline Phosphatase 75 U/L (39-117); Anion Gap 14 (12-20); Aspartate Amino Transferase 18 U/L (5-37); Bilirubin Direct 0.2 mg/dL (0.0-0.5); Bilirubin Total 0.9 mg/dL (0.0-1.0); Blood Urea Nitrogen 18 mg/dL (9-16); Calcium 8.8 mg/dL (8.4-10.2); Carbon Dioxide 25 mmol/L (22-29); Chloride 106 mmol/L (96-108); Creatinine Clr Calc Pharmacy 60.3; Estimated Glomerular Filt Rate > 60; Glucose Random 117 mg/dL (60-115); Magnesium 2.1 mg/dL (1.6-2.6); Potassium 4.4 mmol/L (3.3-5.1); Sodium 141 mmol/L (135-145); Total Protein 6.4 g/dL (6.5-8.0)
[2022-09-01 14:27] LABS: COVID-19 Test Negative (Negative); IDNOW Serial# BCCEAD1C
--- NOTE | 2022-09-01 17:32 | PM.IMHP ---
History of Present Illness Date of Service: 09/01/22 Chief Complaint: Abnormal blood cultures 82-year-old man presenting to the ER with shortness of breath and fatigue. He was seen in the ER on 08/27/22 and discharged with community-acquired pneumonia diagnosis and congestive heart failure. Sent home with doxycycline and Lasix. Apparently continued to have rigors and night sweats. He also reported feeling a fast heart rate with a history of atrial fibrillation. He reported during his last interrogation directly after that he had an AFib attack and since then has had palpitations. He was called from the ER to return due to positive blood cultures from 08/27/2022, positive for group C strep. Patient was noted to have elevated blood pressure of 179/47, no fever, no leukocytosis, negative COVID. He was started on clindamycin in the ER. He will be admitted for further management and treatment of bacteremia. Review of Systems Review of Systems: Denies any recent fever chills or decrease in appetite respiratory denies any shortness of breath coverage production cardiovascular see HPI gastrointestinal denies any dysphagia abdominal pain nausea vomiting or diarrhea genitourinary denies any dysuria frequency or hematuria musculoskeletal denies any joint pain or swelling neuropsych denies any weakness or seizures all other systems reviewed are negative [facility] Medical History (Updated 09/01/22 @ 17:59 by Marialuisa Galvan NP) Atrial fibrillation Depression Hyperlipidemia Sick sinus syndrome Pertinent family history: No cardiac history Surgical History (Updated 09/01/22 @ 18:00 by Marialuisa Galvan NP) No pertinent past surgical history Social History Alcohol intake: current Alcohol intake frequency: 0-2 drinks per day Smoked in Last 30 Days: No Use of substances other than those prescribed or required for medical reasons: No Advance Directives: No Advance Directives Information Provided: Yes Meds Allergies Allergy/AdvReac Type Severity Reaction Status Date / Time Penicillins Allergy Hives Verified 09/01/22 14:05 Active Medications: Current Medications Clindamycin Phosphate (Cleocin) 600 mg in 50 mls @ 100 mls/hr IV ONCE ONE Stop: 09/01/22 17:38 Pharmacy Consult (Consult Rx Perform Med Rec) 1 each MISCELLANE ONCE PRN PRN Reason: Consult order Physical Exam Vital Signs and Narrative: Vital Signs: Last Vital Signs Temp 98 F 09/01/22 14:06 Pulse 59 09/01/22 14:06 Resp 19 09/01/22 14:06 BP 179/47 H 09/01/22 14:06 Pulse Ox 98 09/01/22 14:06 O2 Del Method Room Air 09/01/22 14:06 BMI result Body Mass Index 29.0 Appearing in no acute distress head is normocephalic atraumatic eyes pupils are PERRLA sclera is anicteric mouth throat mucous membranes are intact and moist neck is supple no lymphadenopathy, no JVD noted lung sounds are clear to auscultation heart regular rate rhythm, clear S1, S2 positive bowel sounds, abdomen is soft, nontender neuro patient is alert x3, no focal deficits Results Labs 09/01/22 14:01 09/01/22 14:01 Labs: Laboratory Results - last 24 hr 09/01/22 09/01/22 09/01/22 14:01 14:01 14:01 MCV 98.1 H MCH 32.2 MCHC 32.8 RDW 13.1 Plt Count 162 MPV 10.6 Immature Gran % (Auto) 0.5 H Neut % (Auto) 67.4 Lymph % (Auto) 20.8 [place] % (Auto) 9.2 Eos % (Auto) 1.8 Baso % (Auto) 0.3 Lymph # (Auto) 1.3 [place] # (Auto) 0.6 Eos # (Auto) 0.1 Baso # (Auto) 0.0 Abs Immat Gran (auto) 0.03 Absolute Neuts (auto) 4.1 Absolute Nucleated RBC 0.000 Nucleated RBC % (auto) 0.0 Anion Gap 14 Estim Creat Clear Calc 60.3 Estimated GFR > 60 Random Glucose 117 H Lactic Acid 1.7 Calcium 8.8 Magnesium 2.1 Total Bilirubin 0.9 Direct Bilirubin 0.2 AST 18 ALT 21 Alkaline Phosphatase 75 Total Protein 6.4 L Albumin 3.9 COVID-19 ([facility]) COVID-19 Clin Com 09/01/22 14:01 MCV MCH MCHC RDW Plt Count MPV Immature Gran % (Auto) Neut % (Auto) Lymph % (Auto) [place] % (Auto) Eos % (Auto) Baso % (Auto) Lymph # (Auto) [place] # (Auto) Eos # (Auto) Baso # (Auto) Abs Immat Gran (auto) Absolute Neuts (auto) Absolute Nucleated RBC Nucleated RBC % (auto) Anion Gap Estim Creat Clear Calc Estimated GFR Random Glucose Lactic Acid Calcium Magnesium Total Bilirubin Direct Bilirubin AST ALT Alkaline Phosphatase Total Protein Albumin COVID-19 ([facility]) Negative COVID-19 Clin Com See Note Assessment and Plan (1) Bacteremia: Status: Acute Plan 82-year-old man presenting to the ER after he was called with positive blood cultures. Had been on doxycycline at home. Streptococcus group C bacteremia Clindamycin IV ID consult Repeat blood cultures No sepsis Paroxysmal atrial fibrillation Episodes of rapid ventricular response Will need pacemaker interrogated, will consult Cardiology Continue amiodarone Hyperlipidemia Statin Hypertension Continue home medications DVT prophylaxis with Lovenox Full code Patient requires to inpatient midnights for treatment of bacteremia requiring IV antibiotics and follow-up of blood cultures Time Spent With Patient Time: Total time managing care of this patient today ____ minutes. Quality Stroke Does the patient have a stroke diagnosis?: No VTE Prior VTE?: No VTE Risk Level:: Medical - moderate - high VTE Device Contraindication: Treatment Not Indicated VTE Drug Contraindication: N/A - Med Ordered
[2022-09-01] MEDS: Clindamycin Phosphate/D5W 600 MG/50 ML PIGGYBACK 100 MG IV (17:42)
--- NOTE | 2022-09-01 17:45 | PC.NURSE ---
Pt a&ox3, denies any pain. Second set of cultures drawn by tech. 20G left AC. medicated per provider order.
[2022-09-01 17:46] VITALS: BP 151/92; PULSE 72; RESP 18; TEMP 36.4; O2SAT 95
[2022-09-01 17:55] LABS: INTERNATIONAL NORM RATIO 1.1 (0.9-1.1); Prothrombin Time 12.3 SEC (10.0-13.1)
[2022-09-01 17:57] LABS: Partial Thromboplastin Time 29.1 SEC (26.0-36.4)
--- NOTE | 2022-09-01 18:40 | PHA.MEDREC ---
Pharmacy Consult ? Medication Reconciliation Pharmacy has completed the medication reconciliation.
[2022-09-01 18:49] VITALS: BP 132/69; PULSE 80; RESP 16; O2SAT 96
--- NOTE | 2022-09-01 19:46 | PC.NURSE ---
RN to RN report given. Transporter notified.
[2022-09-01] MEDS: Enoxaparin Sodium 40 MG/0.4 ML SYRINGE SUBCUT (20:26)
[2022-09-01 20:36] VITALS: BP 173/72; PULSE 78; RESP 20; TEMP 36.3; O2SAT 94
[2022-09-01 23:59] VITALS: BP 151/71; PULSE 70; RESP 18; TEMP 37.1; O2SAT 96
[2022-09-02] MEDS: 0.9 % Sodium Chloride Flush 3 ML SYRINGE IVFLUSH ×3 (00:28→15:10)
[2022-09-02] MEDS: Clindamycin Phosphate/D5W 300 MG/50 ML PIGGYBACK 100 MG IV ×3 (00:28→12:19)
[2022-09-02 01:56] VITALS: BMI 29.0
[2022-09-02 06:46] LABS: MANUAL DIFF FLAG NO
[2022-09-02 06:56] LABS: Basophils Percent Auto 0.6 % (0-2); Eosinophils Absolute Auto 0.1 X10*3/uL (0.0-0.4); Eosinophils Percent Auto 2.7 % (0-4); Hematocrit 36.2 % (42.0-52.0); Hemoglobin 12.3 g/dl (14.0-18.0); Imm Gran Abs Auto 0.07 X10*3/uL (0.00-0.03); Imm Gran Pct Auto 1.4 % (0.0-0.4); Lymphocytes Percent Auto 19.3 % (20-40); Mean Corpuscular Hemoglobin 33.2 pg (27.0-33.0); Mean Corpuscular Volume 97.6 fL (80.0-98.0); Mean Platelet Volume 11.1 fL (9.4-12.4); Monocytes Absolute Auto 0.5 X10*3/uL (0.1-1.2); Monocytes Percent Auto 10.1 % (2-11); Neutrophils Absolute Auto 3.4 x10*3/uL (2.0-8.3); Neutrophils Percent Auto 65.9 % (45-73); Platelet Count 143 X10*3/uL (160-400); Red Blood Count 3.71 X10*6/uL (4.60-5.80); Red Cell Distribution Width 12.9 % (11.0-16.0); White Blood Count 5.1 X10*3/uL (4.8-10.8)
--- NOTE | 2022-09-02 07:00 | CA_ITS ---
Transthoracic Echocardiogram Patient (Last, First, Middle): Catracho Holt, Gender: Male Date of : 1940 Age: 82 Procedure Date: 09/02/2022 Procedure Type: Transthoracic Echocardiogram Location: [facility] [place] Height: 183. cm Weight: 97. kg BSA: 2.19 m2 Heart Rate: 46 bpm BP: 151 / 71 mmHg Software Lead: HOSEA Referring MD: Marialuisa Galvan NP Symptoms: bacteremia Study Quality: Fair ECG Rhythm: Sinus, PVCs. Conclusions: - The left ventricular systolic function is normal. The visually estimated ejection fraction is between 60-65%. - There is moderate calcification of the aortic valve. There is no aortic valve stenosis. - There is mild mitral valve regurgitation. Findings Left Ventricle Normal left ventricular cavity size. There is mildly increased left ventricular wall thickness. The left ventricular systolic function is normal. The visually estimated ejection fraction is between 60-65%. There is no evidence of regional wall motion abnormalities. Diastolic function is normal for age. Right Ventricle Mildly increased right ventricular cavity size. There is normal right ventricular systolic function. Atria Both atria are normal in size. Aortic Valve There is moderate calcification of the aortic valve. There is no aortic valve stenosis. There is no aortic valve regurgitation. Mitral Valve There is mild anterior mitral leaflet thickening. There is mild mitral valve regurgitation. There is no mitral valve stenosis. Pulmonic Valve The pulmonic valve is likely normal. Tricuspid Valve Normal tricuspid valve structure. There is mild tricuspid valve regurgitation. There is no evidence of pulmonary hypertension. Great Vessels The asc aorta is normal in size. Venous The inferior vena cava is normal in size and collapses less than 50% with inspiration. Pericardium/Pleural There is no evidence of pericardial effusion. Prior Study Comparison No prior study available for comparison. Measurements 2D Linear Measurements IVSd: 1.32 0.6-0.9/0.6-1.0 cm LVIDd: 4.17 3.9-5.3/4.2-5.9 cm LVIDd Index: 1.90 2.4-3.2/2.2-3.1 cm/m2 LVIDs: 2.90 2.0-3.6 cm LVPWd: 1.28 0.7-1.1 cm LA Diam: 4.40 2.7-3.8/3.0-4.0 cm LAIDs Index: 2.01 1.5-2.3 cm/m2 LV Mass: 247.29 67-162/88-224 g LV Mass Index: 112.92 43-95/49-115 g/m2 LVOT Diam: 2.30 3.0+(-)1.3 cm 2D Systolic Function EF 4C: 61.90 >55% EF 2C: 53.70 >55% EF BiP: 57.10 >55% Mitral Valve MV Pk E: 0.78 MV Decel Time: 367.00 E'Lateral: 5.77 E'Medial: 5.11 E/E' Med: 15.30 E/E' Lat: 13.60 PHT: 108.00 MVA PHT: 2.04 Decel [place]: 2.14 Aortic Valve AoV Pk Eber: 1.90 AoV Mn Eber: 1.42 AoV VTI: 0.44 AoV Pk Grad: 14.00 Aov Mn Grad: 9.00 HEATHER Cont.VTI: 3.09 LVOT LVOT Pk Eber: 1.46 LVOT Mn Eber: 1.09 LVOT VTI: 0.33 LVOT Pk Grad: 9.00 LVOT Mn Grad: 5.00 LVOT Diam: 2.30 LVOT Area: 4.15 Diastolic Function MV Pk E: 0.78 E'Medial: 5.11 E/E' Med: 15.30 E' Laterial: 5.77 E/E' Lat: 13.60 Right Ventricle TAPSE (mm): 19.80 TVS' Eber: 13.30 Tricuspid Valve TR Pk Eber: 2.17 TR Pk Grad: 19.00 RA Press: 8.00 RVSP: 27.00 Great Vessels Aorta Sinus of Valsalva: 4.10 2.0-3.5 cm Ao Asc: 3.50 2.1-3.4 cm Pulmonary Valve PV Pk Eber: 0.99 Peak PV Grad: 4.00 Updated in Other Vendor System with Status of Final Neville Kruger MD electronically signed on 09/02/2022 11:59:29 AM with status of Final
[2022-09-02 07:03] LABS: Anion Gap 12 (12-20); Blood Urea Nitrogen 16 mg/dL (9-16); Calcium 8.2 mg/dL (8.4-10.2); Carbon Dioxide 26 mmol/L (22-29); Chloride 108 mmol/L (96-108); Creatinine Clr Calc Pharmacy 71.1; Estimated Glomerular Filt Rate > 60; Glucose Random 95 mg/dL (60-115); Sodium 142 mmol/L (135-145)
[2022-09-02] MEDS: Multivitamin TABLET 1 TAB PO (08:45)
[2022-09-02] MEDS: Escitalopram Oxalate 10 MG TABLET PO (08:45)
[2022-09-02] MEDS: Amiodarone HCL 200 MG TABLET PO (08:45)
[2022-09-02] MEDS: Atorvastatin Calcium 10 MG TABLET PO (08:45)
[2022-09-02] MEDS: Furosemide 20 MG TABLET 10 MG PO (08:45)
[2022-09-02 09:10] LABS: Appearance Urine Clear; Color Urine Yellow; Glucose Urine UA Negative (Negative); Leukocyte Esterase Urine Negative (Negative); Nitrite Urine Negative (Negative); Urine Blood Negative (Negative); Urine Ketones Negative (Negative); Urine Protein Negative (Neg-Trace)
--- NOTE | 2022-09-02 09:23 | PM.CNCAR ---
History of Present Illness History of Present Illness Date of Service: 09/02/22 Chief complaint: Bacteremia Narrative: This is a cardiology consultation regarding question of atrial fibrillation. Patient states that he goes not and Cardiology and has been there for more than a decade. Apparently, 10 years ago or so he got diagnosed with atrial fibrillation and around the time he also underwent pacemaker placement. He is being followed there in that regard. Per patient, he is maintained on long-term amiodarone. With regard to anticoagulation, he did not favor taking it and hence after discussion with his own ear machine operator, it seems that he was never put on anticoagulation. Also some issues in his own family where the outcome wasn't good after taking Coumadin. Current admissions because of bacteremia. However, there is a question of atrial fibrillation although the actual telemetry data or EKGs do not show any atrial fibrillation. Patient states that few days ago, he was suddenly feeling dizzy and thought he was going to pass out. One major episode and apparently couple minor once after that. Etiology for that is not very clear. Review of Systems Review of Systems: Yes all other systems are reviewed and are negative Constitutional: Constitutional: Reports as per HPI and Reports no additional constitutional complaints Eyes: Eyes: Reports as per HPI and Denies no additional eye complaints ENT: Denies system reviewed and no additional complaints, except as documented and Reports as per HPI Cardiovascular: Cardiovascular: Reports as per HPI, Reports no additional cardiovascular complaints, Denies acrocyanosis, Denies cool extremities, Denies chest pain, Denies leg edema, Reports lightheadedness, Denies palpitations and Denies dyspnea Respiratory: Respiratory: Reports as per HPI, Denies no additional respiratory complaints and Denies dyspnea Gastrointestinal: Gastrointestinal: Reports as per HPI and Denies no additional gastrointestinal complaints Genitourinary: Genitourinary: Reports no additional male genitourinary complaints and Reports as per HPI Musculoskeletal: Musculoskeletal: Reports no additional musculoskeletal complaints and Reports as per HPI Integumentary/Breasts: Skin/Breast: Reports system reviewed and no additional complaints, except as docu Neurologic: Reports system reviewed and no additional complaints, except as documented and Reports as per HPI Psychiatric: Psychiatric: Reports no additional psychiatric complaints and Reports as per HPI Endocrine: Endocrine: Reports no additional endocrine complaints, Reports as per HPI and Denies palpitations Hematologic/Lymphatic: Hematologic/Lymphatic: Reports no additional hematologic/lymphatic complaints and Reports as per HPI Allergic/Immunologic: Allergic/Immunologic: Reports no additional allergic/immunologic complaints and Reports as per HPI [facility] Past Medical History Medical History (Updated 09/02/22 @ 09:42 by Neville Kruger MD) Atrial fibrillation Depression Hyperlipidemia Sick sinus syndrome Family History Family History (Updated 09/02/22 @ 09:35 by Neville Kruger MD) Mother Lung cancer Father Emphysema lung Surgical History Surgical History No pertinent past surgical history Social History Social History Household Members: None Housing: House Do you presently have visiting nurse or other home services: No Alcohol intake: current Alcohol intake frequency: 0-2 drinks per day Patient Tobacco Use Status: Former Tobacco user Tobacco use type: Cigarette Smoked in Last 30 Days: No Patient Interested in Nicotine Replacement: No Patient Given Instructions on How to Stop Smoking: No Second Hand Smoke Exposure: No Use of substances other than those prescribed or required for medical reasons: No Currently Displaying Signs/Symptoms of Drug Intoxication Withdrawal: No Any prior treatment program specific to substance use: No Have you been hit, kicked, punched, or otherwise hurt by someone within the past year? If so, by whom?: No Do you feel safe in your current relationship?: No Current Relationship Is there a partner from a previous relationship who is making you feel unsafe now?: No Are you made to feel afraid or neglected: No Advance Directives: No Advance Directives Information Provided: Yes Advance Directives on File: No Do you have thoughts of harming others: None Do you have a plan to hurt others: No Plan Recently lost weight without trying: No Eating poorly because of decreased appetite: No Nutrition Risks: No Nutritional Risk Poor oral hygiene: No Meds Allergies Allergy/AdvReac Type Severity Reaction Status Date / Time Penicillins Allergy Hives Verified 09/01/22 14:05 Active Medications: Current Medications Acetaminophen (Acetaminophen 325 Mg Tablet) 650 mg PO Q6H PRN PRN Reason: Pain, Mild (Pain Scale 1-3) Amiodarone HCl (Amiodarone Hcl 200 Mg Tablet) 200 mg PO DAILY GEOVANI Last Admin: 09/02/22 08:45 Dose: 200 mg Atorvastatin Calcium (Atorvastatin Calcium 10 Mg Tablet) 10 mg PO DAILY [facility] Last Admin: 09/02/22 08:45 Dose: 10 mg Enoxaparin Sodium (Enoxaparin Sodium 40 Mg/0.4 Ml Syringe) 40 mg SUBCUT Q24H [facility] Last Admin: 09/01/22 20:26 Dose: 40 mg Escitalopram Oxalate (Escitalopram Oxalate 10 Mg Tablet) 10 mg PO DAILY [facility] Last Admin: 09/02/22 08:45 Dose: 10 mg Furosemide (Furosemide 20 Mg Tablet) 10 mg PO DAILY [facility]; Protocol Last Admin: 09/02/22 08:45 Dose: 10 mg Clindamycin Phosphate (Cleocin) 300 mg in 50 mls @ 100 mls/hr IV Q6H [facility] Last Infusion: 09/02/22 06:43 Dose: Infused Multivitamins/Vitamin C (Multivitamin Tablet) 1 tab PO DAILY [facility] Last Admin: 09/02/22 08:45 Dose: 1 tab Ondansetron HCl (Ondansetron Hcl 4 Mg/2 Ml Vial) 4 mg IVPUSH Q8H PRN PRN Reason: Nausea and Vomiting Pharmacy Consult (Consult Rx Perform Med Rec) 1 each MISCELLANE ONCE PRN PRN Reason: Consult order Sodium Chloride (0.9 % Sodium Chloride Flush 3 Ml Syringe) 3 ml IVFLUSH QSHIFT [facility] Last Admin: 09/02/22 07:29 Dose: 3 ml Home Medications Medication Instructions Recorded Confirmed Last Taken Type amiodarone 200 mg tablet 200 mg PO DAILY 09/01/22 09/01/22 09/01/22 History ascorbic acid (vitamin C) 500 mg 1,000 mg PO DAILY 09/01/22 09/01/22 Unknown History tablet atorvastatin 10 mg tablet 10 mg PO DAILY 09/01/22 09/01/22 09/01/22 History cholecalciferol (vitamin D3) 10 10 mcg PO DAILY 09/01/22 09/01/22 Unknown History mcg (400 unit) tablet escitalopram oxalate 10 mg tablet 10 mg PO DAILY 09/01/22 09/01/22 09/01/22 History multivitamin 1 tab PO DAILY 09/01/22 09/01/22 Unknown History vitamin E 268 mg (400 unit) capsule 268 mg PO DAILY 09/01/22 09/01/22 Unknown History Physical Exam Vital Signs: Vital Signs: Last Vital Signs Temp 98.8 F 09/01/22 23:59 Pulse 70 09/01/22 23:59 Resp 18 09/01/22 23:59 BP 151/71 H 09/01/22 23:59 Pulse Ox 96 09/01/22 23:59 O2 Del Method Room Air 09/01/22 23:59 BMI result Body Mass Index 29.0 Const: General: comfortable and no acute distress Orientation/consciousness: patient oriented x3 HEENT: Other: Unremarkable Head: Yes normal to inspection Neck: Neck: Yes normal visual inspection Chest: Chest palpation & inspection: normal inspection of the chest Resp: Auscultation: clear to auscultation bilaterally Cardio: Palpation: normal PMI Heart sounds: S1 normal heart sound present, S2 normal heart sound present, no gallops, Murmur heart sound present systolic II/ and at the right sternal border and no rubs GI: Palpation (GI): Soft to palpation Back/Spine/Pelvis: Other: unremarkable Skin: General skin exam: no rashes or lesions noted Neuro: General: patient oriented x3 Extrem: General: Yes normal to inspection Psych: Mental Status: mental status grossly normal Objective Labs and Meds 09/02/22 06:13 09/02/22 06:13 Lab results: Laboratory Results - last 24 hr 09/01/22 09/01/22 09/01/22 14:01 14:01 14:01 WBC 6.1 RBC 4.23 L Hgb 13.6 L Hct 41.5 L MCV 98.1 H MCH 32.2 MCHC 32.8 RDW 13.1 Plt Count 162 MPV 10.6 Immature Gran % (Auto) 0.5 H Neut % (Auto) 67.4 Lymph % (Auto) 20.8 [place] % (Auto) 9.2 Eos % (Auto) 1.8 Baso % (Auto) 0.3 Lymph # (Auto) 1.3 [place] # (Auto) 0.6 Eos # (Auto) 0.1 Baso # (Auto) 0.0 Abs Immat Gran (auto) 0.03 Absolute Neuts (auto) 4.1 Absolute Nucleated RBC 0.000 Nucleated RBC % (auto) 0.0 PT INR APTT Sodium 141 Potassium 4.4 Chloride 106 Carbon Dioxide 25 Anion Gap 14 BUN 18 H Creatinine 1.12 Estim Creat Clear Calc 60.3 Estimated GFR > 60 Random Glucose 117 H Lactic Acid 1.7 Calcium 8.8 Magnesium 2.1 Total Bilirubin 0.9 Direct Bilirubin 0.2 AST 18 ALT 21 Alkaline Phosphatase 75 Total Protein 6.4 L Albumin 3.9 Urine Color Urine Appearance Urine pH Ur Specific [place] Urine Protein Urine Glucose (UA) Urine Ketones Urine Blood Urine Nitrite Ur Leukocyte Esterase COVID-19 ([facility]) COVID-19 Clin Com 09/01/22 09/01/22 09/02/22 14:01 17:42 06:13 WBC 5.1 RBC 3.71 L Hgb 12.3 L Hct 36.2 L MCV 97.6 MCH 33.2 H MCHC 34.0 RDW 12.9 Plt Count 143 L MPV 11.1 Immature Gran % (Auto) 1.4 H Neut % (Auto) 65.9 Lymph % (Auto) 19.3 L [place] % (Auto) 10.1 Eos % (Auto) 2.7 Baso % (Auto) 0.6 Lymph # (Auto) 1.0 L [place] # (Auto) 0.5 Eos # (Auto) 0.1 Baso # (Auto) 0.0 Abs Immat Gran (auto) 0.07 H Absolute Neuts (auto) 3.4 Absolute Nucleated RBC 0.000 Nucleated RBC % (auto) 0.0 PT 12.3 INR 1.1 APTT 29.1 Sodium Potassium Chloride Carbon Dioxide Anion Gap BUN Creatinine Estim Creat Clear Calc Estimated GFR Random Glucose Lactic Acid Calcium Magnesium Total Bilirubin Direct Bilirubin AST ALT Alkaline Phosphatase Total Protein Albumin Urine Color Urine Appearance Urine pH Ur Specific [place] Urine Protein Urine Glucose (UA) Urine Ketones Urine Blood Urine Nitrite Ur Leukocyte Esterase COVID-19 ([facility]) Negative COVID-19 Clin Com See Note 09/02/22 09/02/22 06:13 08:48 WBC RBC Hgb Hct MCV MCH MCHC RDW Plt Count MPV Immature Gran % (Auto) Neut % (Auto) Lymph % (Auto) [place] % (Auto) Eos % (Auto) Baso % (Auto) Lymph # (Auto) [place] # (Auto) Eos # (Auto) Baso # (Auto) Abs Immat Gran (auto) Absolute Neuts (auto) Absolute Nucleated RBC Nucleated RBC % (auto) PT INR APTT Sodium 142 Potassium 4.0 Chloride 108 Carbon Dioxide 26 Anion Gap 12 BUN 16 Creatinine 0.95 Estim Creat Clear Calc 71.1 Estimated GFR > 60 Random Glucose 95 Lactic Acid Calcium 8.2 L D Magnesium Total Bilirubin Direct Bilirubin AST ALT Alkaline Phosphatase Total Protein Albumin Urine Color Yellow Urine Appearance Clear Urine pH 6.0 Ur Specific [place] 1.010 Urine Protein Negative Urine Glucose (UA) Negative Urine Ketones Negative Urine Blood Negative Urine Nitrite Negative Ur Leukocyte Esterase Negative COVID-19 ([facility]) COVID-19 Clin Com ECG Interpretation: EKG with atrial paced rhythm with prolonged NV, frequent PVCs; ventricular rate 79/Min. Imaging Radiologist's impression: Impressions Chest X-Ray 09/01/22 18:15 IMPRESSION: No acute abnormality of chest. Assessment and Plan (1) PAF (paroxysmal atrial fibrillation): Status: Acute (2) Frequent PVCs: Status: Acute (3) Bacteremia: Status: Acute (4) Sick sinus syndrome: Status: Acute Plan High sensitivity troponins are 22.6. Cardiac BNP is 364. Blood cultures positive for Streptococcus group C/ coagulase-negative Staphylococcus. With regard to question of syncopal episode, etiology not clear. Could also be possibly related to the bacteremia itself. He does have frequent PVCs on telemetry and supposedly had some atrial fibrillation but cannot find those trips to evaluate. Will try to see if we can coordinate a device interrogation while he is in the hospital. Otherwise, echocardiogram for cardiac function assessment as well as assess aortic valve murmur. With regard to the bacteremia itself, ID can evaluate and see if there is any cardiac concerns. If so, then we will address accordingly. With regard to the question of anticoagulation, he has had atrial fibrillation for more than 10 years but does not take any directly acting anticoagulants or warfarin. No inpatient concern from this but should again be pursued as an outpatient because of considerable stroke risk. Discussed with Margaret Shearer. Time Spent With Patient Time: Total time managing care of this patient today 75 minutes. Total time spent including review of chart, telemetry, discussion with patient, hospitalist, counseling, coordination with pacemaker interrogation/review, documentation, overall coordination of care-75 minutes. Procedures Date of Service Date of Service: 09/02/22
--- NOTE | 2022-09-02 12:44 | P.PNIM_ITS ---
Subjective Subjective Date of Service: 09/02/22 Interval History: seen and examined this morning follow up for bacteremia reporting intermittent cough, no fever no chest pain, palpitations Review of Systems Review of Systems: Yes all other systems are reviewed and are negative Constitutional Constitutional: Denies chills and Denies fever(s) ENT Ears, Nose, Mouth, and Throat: Denies dizziness Cardiovascular Cardiovascular: Denies chest pain Respiratory Respiratory: Reports cough Neurologic Neurologic: Denies dizziness Physical Exam Vital Signs: Vital Signs: Last Vital Signs Temp 98.8 F 09/01/22 23:59 Pulse 70 09/01/22 23:59 Resp 18 09/01/22 23:59 BP 151/71 H 09/01/22 23:59 Pulse Ox 96 09/01/22 23:59 O2 Del Method Room Air 09/01/22 23:59 BMI result Body Mass Index 29.0 Const: General: alert and awake Nutritional Appearance: average body habitus Orientation/consciousness: patient oriented x3 Resp: Effort & Inspection: normal respiratory effort and able to speak in complete sentences Cardio: Rate: regular rate GI: Inspection: No distended Palpation (GI): Soft to palpation and nontender Neuro: Other: no focal deficits General: patient oriented x3 Extrem: General: Yes no pedal edema Objective Data Active Medications Acetaminophen (Acetaminophen 325 Mg Tablet) 650 mg PO Q6H PRN PRN Reason: Pain, Mild (Pain Scale 1-3) Amiodarone HCl (Amiodarone Hcl 200 Mg Tablet) 200 mg PO DAILY [facility] Last Admin: 09/02/22 08:45 Dose: 200 mg Documented By: TIFFANIE Atorvastatin Calcium (Atorvastatin Calcium 10 Mg Tablet) 10 mg PO DAILY [facility] Last Admin: 09/02/22 08:45 Dose: 10 mg Documented By: TIFFANIE Enoxaparin Sodium (Enoxaparin Sodium 40 Mg/0.4 Ml Syringe) 40 mg SUBCUT Q24H [facility] Last Admin: 09/01/22 20:26 Dose: 40 mg Documented By: UVALDO Escitalopram Oxalate (Escitalopram Oxalate 10 Mg Tablet) 10 mg PO DAILY [facility] Last Admin: 09/02/22 08:45 Dose: 10 mg Documented By: TIFFANIE Furosemide (Furosemide 20 Mg Tablet) 10 mg PO DAILY [facility]; Protocol Last Admin: 09/02/22 08:45 Dose: 10 mg Documented By: TIFFANIE Clindamycin Phosphate (Cleocin) 300 mg in 50 mls @ 100 mls/hr IV Q6H [facility] Last Admin: 09/02/22 12:19 Dose: 100 mls/hr Documented By: TIFFANIE Multivitamins/Vitamin C (Multivitamin Tablet) 1 tab PO DAILY [facility] Last Admin: 09/02/22 08:45 Dose: 1 tab Documented By: TIFFANIE Ondansetron HCl (Ondansetron Hcl 4 Mg/2 Ml Vial) 4 mg IVPUSH Q8H PRN PRN Reason: Nausea and Vomiting Pharmacy Consult (Consult Rx Perform Med Rec) 1 each MISCELLANE ONCE PRN PRN Reason: Consult order Sodium Chloride (0.9 % Sodium Chloride Flush 3 Ml Syringe) 3 ml IVFLUSH QSHIFT [facility] Last Admin: 09/02/22 07:29 Dose: 3 ml Documented By: TIFFANIE Labs 09/02/22 06:13 09/02/22 06:13 Labs: Laboratory Results - last 24 hr 09/01/22 09/01/22 09/01/22 14:01 14:01 14:01 MCV 98.1 H MCH 32.2 MCHC 32.8 RDW 13.1 Plt Count 162 MPV 10.6 Immature Gran % (Auto) 0.5 H Neut % (Auto) 67.4 Lymph % (Auto) 20.8 Walsh % (Auto) 9.2 Eos % (Auto) 1.8 Baso % (Auto) 0.3 Lymph # (Auto) 1.3 Walsh # (Auto) 0.6 Eos # (Auto) 0.1 Baso # (Auto) 0.0 Abs Immat Gran (auto) 0.03 Absolute Neuts (auto) 4.1 Absolute Nucleated RBC 0.000 Nucleated RBC % (auto) 0.0 PT INR APTT Anion Gap 14 Estim Creat Clear Calc 60.3 Estimated GFR > 60 Random Glucose 117 H Lactic Acid 1.7 Calcium 8.8 Magnesium 2.1 Total Bilirubin 0.9 Direct Bilirubin 0.2 AST 18 ALT 21 Alkaline Phosphatase 75 Total Protein 6.4 L Albumin 3.9 Urine Color Urine Appearance Urine pH Ur Specific Echo Urine Protein Urine Glucose (UA) Urine Ketones Urine Blood Urine Nitrite Ur Leukocyte Esterase COVID-19 (ROMERO) COVID-19 Clin Com 09/01/22 09/01/22 09/02/22 14:01 17:42 06:13 MCV 97.6 MCH 33.2 H MCHC 34.0 RDW 12.9 Plt Count 143 L MPV 11.1 Immature Gran % (Auto) 1.4 H Neut % (Auto) 65.9 Lymph % (Auto) 19.3 L Walsh % (Auto) 10.1 Eos % (Auto) 2.7 Baso % (Auto) 0.6 Lymph # (Auto) 1.0 L Walsh # (Auto) 0.5 Eos # (Auto) 0.1 Baso # (Auto) 0.0 Abs Immat Gran (auto) 0.07 H Absolute Neuts (auto) 3.4 Absolute Nucleated RBC 0.000 Nucleated RBC % (auto) 0.0 PT 12.3 INR 1.1 APTT 29.1 Anion Gap Estim Creat Clear Calc Estimated GFR Random Glucose Lactic Acid Calcium Magnesium Total Bilirubin Direct Bilirubin AST ALT Alkaline Phosphatase Total Protein Albumin Urine Color Urine Appearance Urine pH Ur Specific Echo Urine Protein Urine Glucose (UA) Urine Ketones Urine Blood Urine Nitrite Ur Leukocyte Esterase COVID-19 (ROMERO) Negative COVID-docplanner See Note 09/02/22 09/02/22 06:13 08:48 MCV MCH MCHC RDW Plt Count MPV Immature Gran % (Auto) Neut % (Auto) Lymph % (Auto) Walsh % (Auto) Eos % (Auto) Baso % (Auto) Lymph # (Auto) Walsh # (Auto) Eos # (Auto) Baso # (Auto) Abs Immat Gran (auto) Absolute Neuts (auto) Absolute Nucleated RBC Nucleated RBC % (auto) PT INR APTT Anion Gap 12 Estim Creat Clear Calc 71.1 Estimated GFR > 60 Random Glucose 95 Lactic Acid Calcium 8.2 L D Magnesium Total Bilirubin Direct Bilirubin AST ALT Alkaline Phosphatase Total Protein Albumin Urine Color Yellow Urine Appearance Clear Urine pH 6.0 Ur Specific Echo 1.010 Urine Protein Negative Urine Glucose (UA) Negative Urine Ketones Negative Urine Blood Negative Urine Nitrite Negative Ur Leukocyte Esterase Negative COVID-19 (ROMERO) COVID-docplanner Assessment and Plan (1) Bacteremia: Status: Acute (2) PAF (paroxysmal atrial fibrillation): Status: Acute Plan 82-year-old man presenting to the ER after he was called with positive blood cultures. Had been on doxycycline at home. Streptococcus group C bacteremia BCx from 08/27 growing group c strep and coag negative staph Continue Clindamycin IV ID consult pending ECHO with no evidence of vegetation Repeat blood cultures pending No sepsis Paroxysmal atrial fibrillation Episodes of rapid ventricular response - none on monitor since admission seen by Cardiology - plan for PM interrogation today Continue amiodarone Not on AC at baseline -unable to afford eliquis/xarelto and does not want to take coumadin Hyperlipidemia Statin mood continue lexapro DVT prophylaxis with Lovenox Full code attending - dr. hernandez Patient requires to inpatient midnights for treatment of bacteremia requiring IV antibiotics and follow-up of blood cultures Time Spent With Patient Time: Total time managing care of this patient today ____ minutes. Quality Stroke Does the patient have a stroke diagnosis?: No VTE Prior VTE?: No VTE Risk Level:: Medical - moderate - high VTE Device Contraindication: Treatment Not Indicated VTE Drug Contraindication: N/A - Med Ordered
--- NOTE | 2022-09-02 14:47 | P.CNID_ITS ---
History of Present Illness Data of Consult Service Date: 09/02/22 Requesting physician: Margaret Shearer Primary Care Provider: Philippe Cruz MD [facility] Reason for consult: Group C bacteremia He presents with shortness of breath and fatigue and also told he should come back for bacteremia. He was hospitalized pneumonia concerns and discharged 08/27 and subsequent blood cultures Group C strep. He has no fever or chills. He had been discharged on Doxycycline and was taking it. He had taken Penicillin and had hives reported as child. He feels somewhat better now. Review of Systems Review of Systems: Yes all other systems are reviewed and are negative [facility] [place] Past Medical History Medical History (Updated 09/02/22 @ 14:53 by Latosha Burrell MD) Atrial fibrillation Depression Group C streptococcal infection Hyperlipidemia Sick sinus syndrome Family History Family History Mother Lung cancer Father Emphysema lung Family history: reviewed and not pertinent Surgical History Surgical History No pertinent past surgical history Social History Social History Household Members: None Housing: House Do you presently have visiting nurse or other home services: No Alcohol intake: current Alcohol intake frequency: 0-2 drinks per day Patient Tobacco Use Status: Former Tobacco user Tobacco use type: Cigarette Smoked in Last 30 Days: No Patient Interested in Nicotine Replacement: No Patient Given Instructions on How to Stop Smoking: No Second Hand Smoke Exposure: No Use of substances other than those prescribed or required for medical reasons: No Currently Displaying Signs/Symptoms of Drug Intoxication Withdrawal: No Any prior treatment program specific to substance use: No Have you been hit, kicked, punched, or otherwise hurt by someone within the past year? If so, by whom?: No Do you feel safe in your current relationship?: No Current Relationship Is there a partner from a previous relationship who is making you feel unsafe now?: No Are you made to feel afraid or neglected: No Advance Directives: No Advance Directives Information Provided: Yes Advance Directives on File: No Do you have thoughts of harming others: None Do you have a plan to hurt others: No Plan Recently lost weight without trying: No Eating poorly because of decreased appetite: No Nutrition Risks: No Nutritional Risk Poor oral hygiene: No Meds Allergies Allergy/AdvReac Type Severity Reaction Status Date / Time Penicillins Allergy Hives Verified 09/01/22 14:05 Active Medications: Current Medications Acetaminophen (Acetaminophen 325 Mg Tablet) 650 mg PO Q6H PRN PRN Reason: Pain, Mild (Pain Scale 1-3) Amiodarone HCl (Amiodarone Hcl 200 Mg Tablet) 200 mg PO DAILY [facility] Last Admin: 09/02/22 08:45 Dose: 200 mg Atorvastatin Calcium (Atorvastatin Calcium 10 Mg Tablet) 10 mg PO DAILY [facility] Last Admin: 09/02/22 08:45 Dose: 10 mg Enoxaparin Sodium (Enoxaparin Sodium 40 Mg/0.4 Ml Syringe) 40 mg SUBCUT Q24H [facility] Last Admin: 09/01/22 20:26 Dose: 40 mg Escitalopram Oxalate (Escitalopram Oxalate 10 Mg Tablet) 10 mg PO DAILY [facility] Last Admin: 09/02/22 08:45 Dose: 10 mg Furosemide (Furosemide 20 Mg Tablet) 10 mg PO DAILY [facility]; Protocol Last Admin: 09/02/22 08:45 Dose: 10 mg Clindamycin Phosphate (Cleocin) 300 mg in 50 mls @ 100 mls/hr IV Q6H [facility] Last Infusion: 09/02/22 13:05 Dose: Infused Multivitamins/Vitamin C (Multivitamin Tablet) 1 tab PO DAILY [facility] Last Admin: 09/02/22 08:45 Dose: 1 tab Ondansetron HCl (Ondansetron Hcl 4 Mg/2 Ml Vial) 4 mg IVPUSH Q8H PRN PRN Reason: Nausea and Vomiting Pharmacy Consult (Consult Rx Perform Med Rec) 1 each MISCELLANE ONCE PRN PRN Reason: Consult order Sodium Chloride (0.9 % Sodium Chloride Flush 3 Ml Syringe) 3 ml IVFLUSH QSHIFT [facility] Last Admin: 09/02/22 07:29 Dose: 3 ml Home Medications Medication Instructions Recorded Confirmed Last Taken Type amiodarone 200 mg tablet 200 mg PO DAILY 09/01/22 09/01/22 09/01/22 History ascorbic acid (vitamin C) 500 mg 1,000 mg PO DAILY 09/01/22 09/01/22 Unknown History tablet atorvastatin 10 mg tablet 10 mg PO DAILY 09/01/22 09/01/22 09/01/22 History cholecalciferol (vitamin D3) 10 10 mcg PO DAILY 09/01/22 09/01/22 Unknown History mcg (400 unit) tablet escitalopram oxalate 10 mg tablet 10 mg PO DAILY 09/01/22 09/01/22 09/01/22 History multivitamin 1 tab PO DAILY 09/01/22 09/01/22 Unknown History vitamin E 268 mg (400 unit) capsule 268 mg PO DAILY 09/01/22 09/01/22 Unknown History Physical Exam Vital Signs: Vital Signs: Last Vital Signs Temp 98.8 F 09/01/22 23:59 Pulse 70 09/01/22 23:59 Resp 18 09/01/22 23:59 BP 151/71 H 09/01/22 23:59 Pulse Ox 96 09/01/22 23:59 O2 Del Method Room Air 09/01/22 23:59 BMI result Body Mass Index 29.0 Const: General: cooperative HEENT: Other: upper and lower dentures Face and sinus: Yes normal facial exam Mouth: Normal oral and palatal mucosa present Eyes: General: appearance normal, both eyes and all related structures Pupils: Equal, round and reactive pupils present Resp: Effort & Inspection: normal respiratory effort Cardio: Other: irregular rhythm,2/6 MARIAM GI: Palpation (GI): Soft to palpation and nontender : General: Yes no CVA tenderness Back/Spine/Pelvis: Back: no CVA tenderness Skin: General skin exam: no rashes or lesions noted Neuro: General: moves all extremities Cranial nerves: Yes Equal, round and reactive pupils present Extrem: General: Yes normal to inspection Psych: Appearance: grossly normal Results Labs 09/02/22 06:13 09/02/22 06:13 Labs: Short CBC 09/02/22 Range/Units 06:13 WBC 5.1 (4.8-10.8) X10*3/uL Hgb 12.3 L (14.0-18.0) g/dl Hct 36.2 L (42.0-52.0) % Plt Count 143 L (160-400) X10*3/uL BMP 09/02/22 06:13 Sodium 142 Potassium 4.0 Chloride 108 Carbon Dioxide 26 BUN 16 Creatinine 0.95 Calcium 8.2 L D Urine 09/02/22 Range/Units 08:48 Urine Color Yellow Urine Appearance Clear Urine pH 6.0 (5.0-9.0) Ur Specific [place] 1.010 (1.005-1.025) Urine Protein Negative (Neg-Trace) mg/dL Urine Glucose (UA) Negative (Negative) mg/dL Assessment and Plan (1) Group C streptococcal infection: Status: Acute He has no teeth so likely this bacteremia is due to sinus or lung infection. He has no hypoxia and feels better and CXR unremarkable. TTE shows no hint of endocarditis. Plan Continue IV antibiotic until blood culture negative 48 hrs Switch to Ceftriaxone since is bactericidal and allergic reaction to PCN only as child and risk of reaction 5% or less with Cephalosporin (he is aware and agrees) Would give po Ceftin for 10 days on discharge. Time Spent With Patient Time: Total time managing care of this patient today ____ minutes.
[2022-09-02] MEDS: cefTRIAXone sodium 1 GM in 0.9 % Sodium Chloride 50 ML IV (15:07)
--- NOTE | 2022-09-02 15:10 | MHC.CM.PN ---
CM ATTEMPTED TO MEET WITH PT WHO WAS RECEIVING RN CARE CM TO RETURN
[2022-09-02 15:57] VITALS: BP 130/65; PULSE 63; RESP 20; TEMP 36.5; O2SAT 93
[2022-09-02] MEDS: Enoxaparin Sodium 40 MG/0.4 ML SYRINGE SUBCUT (20:02)
[2022-09-02 23:54] VITALS: BP 138/72; PULSE 50; RESP 18; TEMP 36.4; O2SAT 95
[2022-09-03 07:54] VITALS: BP 144/77; PULSE 65; RESP 20; TEMP 36.1; O2SAT 91
[2022-09-03] MEDS: 0.9 % Sodium Chloride Flush 3 ML SYRINGE IVFLUSH ×2 (09:40→16:46)
[2022-09-03] MEDS: Atorvastatin Calcium 10 MG TABLET PO (09:40)
[2022-09-03] MEDS: Multivitamin TABLET 1 TAB PO (09:40)
[2022-09-03] MEDS: Amiodarone HCL 200 MG TABLET PO (09:41)
[2022-09-03] MEDS: Furosemide 20 MG TABLET 10 MG PO (09:41)
[2022-09-03] MEDS: Escitalopram Oxalate 10 MG TABLET PO (09:41)
--- NOTE | 2022-09-03 10:19 | P.PNCA_ITS ---
Subjective Subjective Date of Service: 09/03/22 Interval history: He states that he is feeling okay. No clear cardiac symptoms. Review of Systems Review of Systems Yes all other systems are reviewed and are negative Constitutional: Reports as per HPI and Reports no additional constitutional complaints Eyes: Reports as per HPI and Denies no additional eye complaints Denies system reviewed and no additional complaints, except as documented and Reports as per HPI Cardiovascular: Reports as per HPI, Reports no additional cardiovascular complaints, Denies acrocyanosis, Denies cool extremities, Denies chest pain, Denies leg edema, Denies lightheadedness, Denies palpitations and Denies dyspnea Respiratory: Reports as per HPI, Denies no additional respiratory complaints and Denies dyspnea Gastrointestinal: Reports as per HPI and Denies no additional gastrointestinal complaints Genitourinary: Reports no additional male genitourinary complaints and Reports as per HPI Musculoskeletal: Reports no additional musculoskeletal complaints and Reports as per HPI Skin/Breast: Reports system reviewed and no additional complaints, except as docu Reports system reviewed and no additional complaints, except as documented and Reports as per HPI Psychiatric: Reports no additional psychiatric complaints and Reports as per HPI Endocrine: Reports no additional endocrine complaints, Reports as per HPI and Denies palpitations Hematologic/Lymphatic: Reports no additional hematologic/lymphatic complaints and Reports as per HPI Allergic/Immunologic: Reports no additional allergic/immunologic complaints and Reports as per HPI Physical Exam Vital Signs: Last Vital Signs Temp 97.0 F 09/03/22 07:54 Pulse 65 09/03/22 07:54 Resp 20 09/03/22 07:54 BP 144/77 H 09/03/22 07:54 Pulse Ox 91 L 09/03/22 07:54 O2 Del Method Room Air 09/03/22 07:54 BMI result Body Mass Index 29.0 Const General: comfortable and no acute distress Orientation/consciousness: patient oriented x3 HEENT Other: Unremarkable Head: Yes normal to inspection Neck Neck: Yes normal visual inspection Chest Chest palpation & inspection: normal inspection of the chest Resp Auscultation: clear to auscultation bilaterally Cardio Palpation: normal PMI Heart sounds: S1 normal heart sound present, S2 normal heart sound present, no gallops, Murmur heart sound present systolic II/ and at the right sternal bord er and no rubs GI Palpation (GI): Soft to palpation Back/Spine/Pelvis Other: unremarkable Skin General skin exam: no rashes or lesions noted Neuro General: patient oriented x3 Extrem General: Yes normal to inspection Psych Mental Status: mental status grossly normal Objective Labs and Meds 09/02/22 06:13 09/02/22 06:13 Progress Note: A&P Assessment and plan (1) PAF (paroxysmal atrial fibrillation): Status: Acute (2) Frequent PVCs: Status: Acute (3) Sick sinus syndrome: Status: Acute Plan High sensitivity troponins are 22.6. Cardiac BNP is 364. Blood cultures positive for Streptococcus group C/ coagulase-negative Staphylococcus. With regard to question of syncopal episode, etiology not clear. Could also be possibly related to the bacteremia itself. He does have frequent PVCs on telemetry and supposedly had some atrial fibrillation but cannot find those trips to evaluate. Device interrogation with suggestion of PMT, but no atrial fibrillation. Approp riate adjustments made. Echocardiogram with preserved LVEF at 60-65%. Moderate aortic valve calcif ication but no stenosis. Mild mitral regurgitation. With regard to the bacteremia itself, ID can evaluate and see if there is any cardiac concerns. If so, then we will address accordingly. With regard to anticoagulation, ideally needs anticoagulation but patient states that he cannot afford Eliquis due to cost and does not want to take warfarin. Extensively discussed today about stroke risk and he states he will think about it. Time Spent With Patient Time: Total time managing care of this patient today 30 minutes. Progress Note: Quality Stroke Does the patient have a stroke diagnosis?: No Procedures Date of Service Date of Service: 09/03/22
--- NOTE | 2022-09-03 12:14 | MHC.CM.PN ---
IMM 09/03 LIVES ALONE IN AN APT. INDEPENDENT AT BASELINE. + HCP AT MD OFFICE + COVID X [address] CARRINGTON AT [facility] [place] DP: HOME, NO SERVICES ANTICIPATED. HAS CAR IN LOT. CM WILL CONTINUE TO FOLLOW.
--- NOTE | 2022-09-03 12:55 | P.DS_ITS ---
DS: Providers Provider Date of Service: 09/03/22 Date of admission: 09/01/22 18:00 Date of discharge: 09/03/22 Primary care physician: Philippe Cruz MD Consults: 09/01/22 18:00 Consult to Cardiology Routine Consulting Provider: [facility] [place] [facility] Reason for consultation: pacemaker interogation, afib rvr Has provider been notified: No Consult to Infectious Diseases Routine Consulting Provider: [facility] [place] [facility] Reason for consultation: bacteremia Has provider been notified: No Attending physician on discharge: Lavelle Rowan Discharging clinician: Margaret Shearer DS: Diagnosis Discharge Diagnosis (1) Group C streptococcal infection: Status: Acute (2) PAF (paroxysmal atrial fibrillation): Status: Acute (3) Frequent PVCs: Status: Acute (4) Sick sinus syndrome: Status: Acute DS: Summary Hospital Course Hospital Course: From H&P on day of admission 82-year-old man presenting to the ER with shortness of breath and fatigue. He was seen in the ER? on? 08/27/22 and discharged with community-acquired pneumonia diagnosis and congestive heart failure.? Sent home with doxycycline and Lasix.? Apparently continued to have rigors and night sweats.? He also reported feeling a fast heart rate with a history of atrial fibrillation.? He reported during his last interrogation directly after that he had an AFib attack and since then has had palpitations.? He was called from the ER to return due to positive blood cultures from 08/27/2022, positive for group C strep.? Patient was noted to have elevated blood pressure of 179/47, no fever, no leukocytosis, negative COVID.? He was started on clindamycin in the ER.? He will be admitted for further management and treatment of bacteremia. Streptococcus group C bacteremia. BCx from 08/27 growing group c strep and coag negative staph. Initially treated with IV Clindamycin. He was seen by ID and transition to IV ceftriaxone. , recommendation for 10 days of p.o. Ceftin on discharge. Likely related to sinus or long infection. , recently treated for pneumonia. ECHO with no evidence of vegetation. Repeat blood cultures negative. No respiratory symptoms, no hypoxia. Patient remained afebrile during hospitali zation. Paroxysmal atrial fibrillation Episodes of rapid ventricular response - none on monitor since admission. seen by Cardiology - pacemaker Interrogated, with suggestion of PMT, but no atrial fibrillation. Appropriate adjustments made. Continued on amiodarone. Not on AC at baseline -unable to afford eliquis/xarelto and does not want to take coumadin. Risk of stroke was discussed in detail. Recommend follow-up with primary bleacher lard for further discussion. Time Spent with Patient Time attestation: Total time managing care of this patient today ____ minutes. Discharge coordination time: Greater than 30 minutes Quality: Safe Use of Opioids Does Pt have an Active Cancer Diagnosis on the Problem List?: No Quality: Stroke Does the patient have a stroke diagnosis?: No Physical Exam Vital Signs: Vital Signs: Last Vital Signs Temp 97.0 F 09/03/22 07:54 Pulse 65 09/03/22 07:54 Resp 20 09/03/22 07:54 BP 144/77 H 09/03/22 07:54 Pulse Ox 91 L 09/03/22 07:54 O2 Del Method Room Air 09/03/22 07:54 BMI result Body Mass Index 29.0 Const: General: alert and awake Nutritional Appearance: average body habitus Orientation/consciousness: patient oriented x3 Resp: Effort & Inspection: normal respiratory effort and able to speak in complete sentences Cardio: Rate: regular rate GI: Inspection: No distended Palpation (GI): Soft to palpation and nontender Neuro: Other: no focal deficits General: patient oriented x3 Extrem: General: Yes no pedal edema DS: Data Data Completed and Pending Labs on day of discharge: Preliminary micro results at discharge 09/01/22 17:42 Blood Culture - Preliminary Blood - Venous No growth after 24 hours. 09/01/22 14:01 Blood Culture - Preliminary Blood - Venous No growth after 24 hours. Discharge Plan Discharge Anticipated Discharge Date/Time: 09/03/22 15:50 Patient Disposition: Home, Self-Care Discharge Diagnosis: Group C strep bacteremia atrial fibrillation Referrals: Philippe Ly MD [Primary Care Provider] - 1 Week Discharge Medications: New cefuroxime axetil 500 mg tablet 500 mg PO BID 10 Days Qty: 20 0RF Continued furosemide [Lasix] 20 mg tablet 10 mg PO DAILY Qty: 14 0RF atorvastatin 10 mg tablet 10 mg PO DAILY amiodarone 200 mg tablet 200 mg PO DAILY escitalopram oxalate 10 mg tablet 10 mg PO DAILY multivitamin Tablet 1 tab PO DAILY ascorbic acid (vitamin C) 500 mg Tablet 1,000 mg PO DAILY cholecalciferol (vitamin D3) 10 mcg (400 unit) Tablet 10 mcg PO DAILY vitamin E 268 mg (400 unit) Capsule 268 mg PO DAILY Discontinued doxycycline hyclate 100 mg tablet 100 mg PO BID 5 Days Qty: 10 0RF Discharge Orders: Discharge Order (Routine); Ordered 09/03/22 Ordered By: Margaret Shearer Activity on Discharge: As tolerated Stand Alone Forms: Patient Portal Discharge page Care Plan Goals: Resolution of infection Health Concerns: Group C strep bacteremia atrial fibrillation - recommend to discuss anticoagulation with bleacher lard Plan of Treatment: Complete 10 days of antibiotics as prescribed call to schedule follow up appointment with PCP call to schedule follow up appointment with bleacher lard Assessment: see discharge summary
[2022-09-03 15:42] VITALS: BP 127/60; PULSE 66; RESP 18; TEMP 36.2; O2SAT 93
--- NOTE | 2022-09-03 16:40 | MHC.CM.PN ---
DP:PT HAS BEEN MEDICALLY CLEARED FOR DC HOME, NO SERVICES. HAS CAR IN LOT.
[2022-09-03] MEDS: cefTRIAXone sodium 1 GM in 0.9 % Sodium Chloride 50 ML IV (16:46)
== END 2022-09-03 18:25 | disposition home or self-care (01) | DRG 153 ==
LOC: HO.ED 17:03 → HO.EDOVER 18:04 → HO.IMC 19:16
PROVIDERS: Physician Assistant; Admitting Provider Nurse Practitioner Acute Care; Emergency Provider Emergency Medicine; PCP Family Medicine; Visit Provider Physician Assistant Medical
DX: J32.9 Chronic sinusitis, unspecified (principal); R78.81 Bacteremia; I48.0 Paroxysmal atrial fibrillation; I49.5 Sick sinus syndrome; I49.3 Ventricular premature depolarization; Z45.018 Encounter for adjustment and management of other part of cardiac pacemaker; E78.5 Hyperlipidemia, unspecified; F32.A Depression, unspecified; B95.4 Other streptococcus as the cause of diseases classified elsewhere; Z20.822 Contact with and (suspected) exposure to COVID-19; Z87.891 Personal history of nicotine dependence; Z88.0 Allergy status to penicillin; Z79.899 Other long term (current) drug therapy
CPT/HCPCS: 36415; 71045; 80048; 80076; 81003; 83605; 83735; 85025; 85610; 85730; 87040; 87635; 93005; 93306; 99285; J0696; J1650; Q9957